=== PATIENT | female | born 1985 | race Caucasian/White ===

== ENCOUNTER 2018-03-10 16:48 | Emergency (ER) | payer OTHER, SELFPAY ==
[2018-03-10 16:50] VITALS: BP 162/87; PULSE 110; RESP 16; TEMP 36.6; O2SAT 98; BMI 31.8
--- NOTE | 2018-03-10 18:07 | US_ITS ---
STUDY: FIRST TRIMESTER OBSTETRICAL ULTRASOUND REASON FOR EXAM: Female, 32 years old. Bleeding. LMP: February 01, 2018. TECHNIQUE: Transvaginal. TECHNICAL QUALITY: Adequate. PRIOR ULTRASOUND: None. FINDINGS: There is no demonstrated intrauterine gestational sac. There is no demonstrated yolk sac. The placenta is non-visualized. There is no demonstrated embryo ( pole). The estimated gestation age (EGA) by LMP is 5 weeks, 2 days. The estimated date of delivery (LITZY) by LMP is November 08, 2018. The uterus measures 7.2 x 4.2 x 3.1 cm. There is no demonstrated uterine fibroid. The cervix is closed. The right ovary measures 2.8 x 2.2 x 2.0 cm. There is no right ovarian cyst. There is no visualized right adnexal mass or complex lesion. The left ovary measures 2.7 x 2.0 x 1.9 cm. There is 1.7 cm cyst. There is no visualized left adnexal mass or complex lesion. There is mild fluid in the cul de sac. US/Transvaginal w/Preg US IMPRESSION: There is no intra or extra uterine gestation seen. Left adnexal cyst. Mild free fluid. Electronically Signed: Shayan Hill MD at 19:38 EDT , Service support ,
[2018-03-10 18:30] LABS: Absolute Lymphocyte Count 1.18 X10^3/ul (0.83-4.51); Absolute Neutrophil Count 6.6 X10^3/uL (2.0-7.7); Basophil# 0.01 X10^3/uL; Basophil% 0.1 % (0-1); Eosinophil# 0.04 X10^3/uL; Eosinophils% 0.5 % (0-5); Hemoglobin 14.2 g/dl (12.0-15.0); Lymphocyte # 1.18 X10^3/ul (4.0); Lymphocyte % 13.9 % (19-41); Mean Corp Hgb Conc 34.6 g/gl (32-36); Mean Corpuscular Hgb 30.4 pg (27.0-32.0); Mean Corpuscular Volume 87.8 fL (81-99); Mean Platelet Vol. 10.2 fl (6.2-12.0); Monocyte# 0.68 X10^3/uL; Neutrophil # 6.55 X10^3/uL (2.7-7.7); Neutrophil % 77.5 % (47-70); Platelet Count 286 K/mm3 (150-450); RBC Distribution Width CV 12.8 % (11.6-14.6); RBC Distribution Width SD 40.9 fl (35.1-43.9); Red Blood Count 4.67 M/mm3 (4.2-5.4); White Blood Count 8.5 K/mm3 (4.4-11.0)
[2018-03-10 18:32] LABS: POSITIVE COUNT NO; POSITIVE DIFFERENTIAL NO; POSITIVE MORPHOLOGY NO
[2018-03-10 18:41] LABS: hCG Titer Quant., Serum 119 mIU/mL (<9 non-preg)
--- NOTE | 2018-03-10 20:02 | ED.VISSUMM ---
- ER Visit Summary Date of Service: 03/10/18 Chief Complaint: [Vaginal bleeding] History of Present Illness: The patient is a 32 F [presents to the emergency department with complaint of vaginal bleeding that started yesterday. Patient states that she took a positive test last week. Patient's last menstrual period was February 01. Last evening she started having increased spotting and lower abdominal pain and cramping. Patient denies urinary symptoms. Patient is . Patient denies feeling lightheaded or dizzy.] Physical Examination: HEENT-PERRLA, EOMI. Cranial nerves II through XII grossly intact. TMs clear. Mucous membranes moist. No adenopathy. Cardiovascular-regular rate and rhythm without murmur or ectopy Lungs-clear to auscultation, chest wall stable without crepitus or subcu emphysema Abdomen-normoactive bowel sounds, soft, nontender, no rebound or rigidity, no peritoneal signs. Extremities-intact ?4, normal range of motion, normal pulses, atraumatic] Test Results: [CBC with differential showed a white count of 8.5, hemoglobin 14, hematocrit 41, platelets 286. Blood type was O+. HCG was 119. Pelvic ultrasound obtained showed a left ovarian cyst however there was no evidence of intra-or extrauterine gestation there was small amount of fluid in the cul-de-sac.] Emergency Department Course and Treatment: [Case was discussed with Dr. Lloyd who asked that patient have a repeat quant in 48 hours.] Treatment Plan: [Repeat quant in 48 hours and follow-up with Dr. Lloyd] Disposition: [Discharged home in stable condition] Impression: [Threatened First trimester bleeding Please cc Dr. Fitz Hernandez with dictation] This note was generated with [employer] software. It may contain incorrect words, spelling, and punctuation that were not noted in review of the chart prior to signing ED Disposition - Plan for ED Patient: Chief Complaint: Vag Bld, Preg Referrals: Mitch Colindres MD [Primary Care Provider] -
[2018-03-10 20:04] VITALS: PULSE 76; RESP 18
--- NOTE | 2018-03-10 20:05 | ED.DEP ---
ED Disposition - Plan for ED Patient: Chief Complaint: Vag Bld, Preg Instructions: ED Miscarriage Poss Referrals: Mitch Colindres MD [Primary Care Provider] - Magaly Lloyd MD [STAFF PHYSICIAN] - 3-5 Days
== END 2018-03-10 20:09 | disposition home or self-care (01) ==
LOC: ED 18:51
PROVIDERS: Emergency Provider Emergency Medicine; Family Provider Family Medicine; PCP Family Medicine
DX: O20.0 Threatened abortion (principal); O34.81 Maternal care for other abnormalities of pelvic organs, first trimester; N83.202 Unspecified ovarian cyst, left side; Z3A.00 Weeks of gestation of pregnancy not specified
CPT/HCPCS: 76817; 84702; 85025; 86900; 99283; A4216

== ENCOUNTER → 2018-03-12 09:42 | Outpatient (CLI) | payer OTHER, SELFPAY ==
[2018-03-12 11:13] LABS: hCG Titer Quant., Serum 167 mIU/mL (<9 non-preg)
== END ==
PROVIDERS: Obstetrics & Gynecology; Family Provider Family Medicine; PCP Family Medicine; Referring Provider Emergency Medicine; Visit Provider Emergency Medicine
DX: O20.0 Threatened abortion (principal); Z3A.00 Weeks of gestation of pregnancy not specified
CPT/HCPCS: 36415; 84702

== ENCOUNTER → 2018-03-14 10:55 | Outpatient (CLI) | payer OTHER, SELFPAY ==
[2018-03-14 11:47] LABS: hCG Titer Quant., Serum 206 mIU/mL (<9 non-preg)
== END ==
PROVIDERS: Family Provider Family Medicine; PCP Family Medicine; Visit Provider Obstetrics & Gynecology
DX: O20.0 Threatened abortion (principal); Z3A.00 Weeks of gestation of pregnancy not specified
CPT/HCPCS: 36415; 84702

== ENCOUNTER → 2018-03-16 08:37 | Outpatient (CLI) | payer OTHER, SELFPAY ==
[2018-03-16 10:13] LABS: Progesterone Level 2.32 ng/mL (See Comment)
[2018-03-16 10:26] LABS: hCG Titer Quant., Serum 248 mIU/mL (<9 non-preg)
== END ==
LOC: LAB 08:40
PROVIDERS: Family Provider Family Medicine; PCP Family Medicine; Referring Provider Obstetrics & Gynecology; Visit Provider Obstetrics & Gynecology
DX: R79.9 Abnormal finding of blood chemistry, unspecified (principal)
CPT/HCPCS: 36415; 84144; 84702

== ENCOUNTER → 2018-03-19 10:47 | Outpatient (CLI) | payer OTHER, SELFPAY ==
[2018-03-19 12:31] LABS: hCG Titer Quant., Serum 236 mIU/mL (<9 non-preg)
== END ==
PROVIDERS: Family Provider Family Medicine; PCP Family Medicine; Referring Provider Obstetrics & Gynecology; Visit Provider Obstetrics & Gynecology
DX: O20.0 Threatened abortion (principal); Z3A.00 Weeks of gestation of pregnancy not specified
CPT/HCPCS: 36415; 84702

== ENCOUNTER → 2018-03-26 10:56 | Outpatient (CLI) | payer OTHER, SELFPAY ==
[2018-03-26 11:53] LABS: hCG Titer Quant., Serum 252 mIU/mL (<9 non-preg)
[2018-03-30 10:37] LABS: C1 Esterase Inhibitor, Quant 29 mg/dL (21-39)
== END ==
LOC: LAB 10:58
PROVIDERS: Family Provider Family Medicine; PCP Family Medicine; Referring Provider Obstetrics & Gynecology; Visit Provider Obstetrics & Gynecology
DX: O03.9 Complete or unspecified spontaneous abortion without complication (principal)
CPT/HCPCS: 36415; 84702; 86160

== ENCOUNTER → 2018-03-28 10:23 | Outpatient (CLI) | payer OTHER, SELFPAY ==
[2018-03-28 11:18] LABS: hCG Titer Quant., Serum 215 mIU/mL (<9 non-preg)
== END ==
PROVIDERS: Family Provider Family Medicine; PCP Family Medicine; Visit Provider Obstetrics & Gynecology
DX: O20.0 Threatened abortion (principal); Z3A.00 Weeks of gestation of pregnancy not specified
CPT/HCPCS: 36415; 84702

== ENCOUNTER → 2018-04-05 10:25 | Outpatient (CLI) | payer OTHER, SELFPAY ==
[2018-04-05 11:52] LABS: hCG Titer Quant., Serum 16 mIU/mL (<9 non-preg)
== END ==
PROVIDERS: Family Provider Family Medicine; PCP Family Medicine; Referring Provider Obstetrics & Gynecology; Visit Provider Obstetrics & Gynecology
DX: O03.9 Complete or unspecified spontaneous abortion without complication (principal)
CPT/HCPCS: 36415; 84702

== ENCOUNTER 2020-01-16 23:55 | Inpatient (IN) | payer OTHER, SELFPAY ==
[2020-01-16 23:56] VITALS: BP 120/79; PULSE 101; RESP 16; TEMP 37.1; O2SAT 99; BMI 31.2
[2020-01-17] VITALS (14 sets, daily range): BP systolic 93–124; BP diastolic 55–81; PULSE 70–97; RESP 14–18; TEMP 36.4–37.2; O2SAT 96–100; BMI 30.9
--- NOTE | 2020-01-17 00:05 | CT_ITS ---
We are attempting to reach an attending provider to discuss findings. An addendum with communication details will be sent when the communication is complete. STUDY: CT ABDOMEN AND PELVIS WITHOUT CONTRAST REASON FOR EXAM: Female, 34 years old. Generalized abdominal pain. RADIATION DOSAGE (If Supplied By Facility): CTDIvol = ( 13.14 ) mGy, DLP = ( 643.25 ) mGycm TECHNIQUE: Transaxial images were obtained from the dome of the diaphragm to the symphysis pubis without oral contrast, and without intravenous contrast. Sagittal and coronal images were reconstructed. Individualized dose optimization techniques were used for this CT. COMPARISON: None. FINDINGS: The visualized lung bases are unremarkable. The visualized portions of the heart are within normal limits. Normal liver. Normal gallbladder and extrahepatic biliary system. Normal spleen. Normal pancreas. Normal bilateral adrenal glands. Normal right kidney. 1 mm nonobstructing inferior pole left renal calculus. Normal visualized stomach. Normal small intestine. Stool present throughout the colon which may represent constipation. 2.0 cm coarse calcification right lower quadrant possibly associated with a dilated appendix coronal image 52 through 54. No periappendiceal inflammatory changes. A calcified right ovarian mass is a another consideration. Normal abdominal aorta. Normal inferior vena cava. Normal retroperitoneum. No intra-abdominal free air. Normal urinary bladder. Uterus grossly normal. As above 2 cm coarse calcification anterior to the right ovary axial images 125 through 131. No left adnexal mass identified. Normal abdominal wall. Normal osseous structures. CT/Abdomen/Pelvis without Cont IMPRESSION: No evidence of bowel obstruction. Stool is present throughout the colon which may represent constipation. 2 cm coarse calcification right lower quadrant. Considerations are an appendicolith associated with a dilated appendix versus a right ovarian neoplasm. Pelvic ultrasound may prove useful. Tiny nonobstructing left renal calculus. Electronically Signed: Cali Santiago MD at 1:49 EDT , Service support ,
--- NOTE | 2020-01-17 00:06 | ED.VIS.GEN ---
History of Present Illness Chief Complaint: Abd Pain Informant: Patient Narrative: Stated all day today she has had abdominal discomfort. She describes a sensation of fullness or bloating. She is never had this before. She is also feeling some soreness in her low back. No urinary symptoms. Denies any other problems. No home treatment. No nausea or vomiting or diarrhea. Does not think she is . Current severity is mild. Worsened by nothing. Relieved by nothing. Past Medical History - Allergies and Home Meds Allergies/Adverse Reactions: Allergies Sulfa (Sulfonamide Antibiotics) Allergy (Verified 01/16/20 23:56) Hives Primary Care Physician: Mitch Colindres MD [NON-STAFF] - Prior records reviewed: Yes Past Medical History: None Surgical History: - - Reviewed Smoking Status: Never smoker Alcohol: None Drugs: None Review of Systems General: Denies: Chills, Fever, Sweats Eyes: Denies: Visual changes - bilaterally, Diplopia ENT: Denies: Rhinorrhea, Sore throat Cardiovascular: Denies: Chest pain, Palpitations Respiratory: Denies: Dyspnea, Cough, Dyspnea on exertion Gastrointestinal: Reports: Abdominal pain. Denies: Nausea, Vomiting, Diarrhea, Melena, Hematochezia Genitourinary: Denies: Dysuria, Hematuria, Frequency Musculoskeletal: Reports: Back pain. Denies: Extremity Pain Skin: Denies: Rash, Wounds Neurological: Denies: Headache, Weakness, Numbness Physical Exam Vital Signs/Narrative: Vital Signs Temp Pulse Resp BP Pulse Ox 01/16/20 23:56 98.7 F 101 H 16 120/79 99 General: Well nourished, Well developed, No Acute Distress Head: Normocephalic, Atraumatic Eyes: Perrl, EOMI ENT: Moist mucous membranes, No rhinorrhea Neck: Supple, Nontender Cardiovascular: Regular rate, Regular rhythm, No murmurs Respiratory: No distress, CTA bilaterally, Chest nontender Abdomen: Soft, Nondistended, Normal bowel sounds, Tender - Tender left lower quadrant. Negative for: Guarding, Rebound tenderness, Hyperactive bowel sounds, Pulsatile mass, Ventral hernia, Inguinal hernia Back: Nontender, Normal Inspection Extremities: Nontender, No edema Skin: Normal color, No rash Neurological: Alert, Oriented x3, Cranial nerves II-XII grossly intact, Normal Strength, Normal Sensation Psychological: Normal affect, Normal Mood Diagnostic/Tx/Re-eval - Medical Decision Making Patient does not want thing for pain. Lab work and CT abdomen pelvis obtained. Lab work shows a mild leukocytosis with left shift. Liver function tests lipase urinalysis and negative. CT abdomen pelvis shows right lower quadrant calcified region with possible ovarian versus appendiceal pathology. Discussed with Dr. Scanlon who came in to evaluate the patient. At this time he feels this may be more ovarian related. Nonetheless Zosyn was given as a precaution for possible appendicitis early in the patient's stay. Ultrasound was done transvaginal shows a complex right-sided ovarian cyst with soft tissue component. This was discussed with MEDICAL REGISTRAR who will evaluate the patient in the emergency department. Patient will be admitted for further evaluation and treatment ED Disposition - Plan for ED Patient: Disposition: [facility] Diagnosis: Ovarian cyst
[2020-01-17 00:21] LABS: Mucous, Urine 0 SEEN /hpf (<or=2+); Red Blood Cells-Urine 0 SEEN /hpf (0-5)
[2020-01-17 00:24] LABS: Absolute Lymphocyte Count 1.01 X10^3/uL (0.83-4.51); Absolute Neutrophil Count 12.3 X10^3/uL (2.0-7.7); Basophil# 0.03 X10^3/uL; Basophil% 0.2 % (0-1); Eosinophil# 0.07 X10^3/uL; Eosinophils% 0.5 % (0-5); Hematocrit 42.5 % (37-47); Hemoglobin 14.4 g/dL (12.0-15.0); Lymphocyte # 1.01 X10^3/ul (4.0); Mean Corp Hgb Conc 33.9 g/dL (32-36); Mean Corpuscular Hgb 30.3 pg (27.0-32.0); Mean Corpuscular Volume 89.5 fL (81-99); Monocyte# 1.03 X10^3/uL; Monocyte% 7.1 % (0-10); NRBC Flagged by Analyzer 0 % (0-5); Neutrophil # 12.29 X10^3/uL (2.7-7.7); Neutrophil % 84.9 % (47-70); Platelet Count 291 K/mm3 (150-450); RBC Distribution Width CV 12.4 % (11.6-14.6); RBC Distribution Width SD 40.8 fl (35.1-43.9); Red Blood Count 4.75 M/mm3 (4.2-5.4); White Blood Count 14.5 K/mm3 (4.4-11.0)
[2020-01-17 00:26] LABS: Color, Urine Yellow (Yellow); Glucose, Dipstick Normal (Normal); Ketone-Dipstick Negative (Negative); Leukocyte Esterase-Dipstick 25 /ul (Negative); Nitrite-Dipstick Negative (Negative); Occult Blood-Urine Negative /ul (Negative); Protein-Dipstick Negative (Negative); Specific Gravity, Urine 1.025 (1.002-1.030); Urine Bilirubin Dipstick Negative (Negative); Urine Clarity Clear (Clear); Urine Urobilinogen Normal (Normal)
[2020-01-17 00:34] LABS: Bacteria RARE /hpf (None Seen); Squamous Epithelial Cells - UA 0-5 SEEN /hpf (5-10); White Blood Cells 0-5 SEEN /hpf (0-5)
[2020-01-17 00:36] LABS: Internal QC Validated? YES +Cl - CLEAR BKGD; Pregnancy, Serum, hCG Quali. NEGATIVE Negative
[2020-01-17 00:44] LABS: AST(SGOT) 9 U/L (15-37); Alanine Aminotransfer ALT/SGPT 24 U/L (13-56); Albumin, Serum 3.9 g/dL (3.2-5.0); Alkaline Phosphatase 94 U/L (45-117); Anion Gap 6 (5-15); BUN 14 mg/dL (7-18); BUN/Creat Ratio 14.7 RATIO (10-20); Calcium,Total 9.2 mg/dL (8.5-10.1); Chloride 108 mmol/L (98-107); Creatinine, Serum 0.95 mg/dL (0.55-1.02); EST Glomerular Filtration Rate 71 mL/min (>60); Est Glom Filt Rate - Afr Amer 85 mL/min (>60); Estimated Creatinine Clearance 74.38 ml/min; Glucose 112 mg/dL (74-106); Lipase 93 U/L (73-393); Potassium 3.8 mmol/L (3.5-5.1); Protein, Total 7.9 g/dL (6.4-8.2); Sodium Level 140 mmol/L (136-145)
--- NOTE | 2020-01-17 02:55 | US_ITS ---
STUDY: ULTRASOUND TRANSVAGINAL CLINICAL: Female, 34 years old. Right-sided abdominal pain for one day. Large coarse calcification right lower quadrant on CT scan. LMP 01/09/2020. TECHNIQUE: Transvaginal COMPARISON: CT abdomen and pelvis January 17, 2020. Pelvic ultrasound March 10, 2018. FINDINGS: The uterus is anteverted and measures 7.5 x 4.7 x 3.2 cm. Endometrium measures 7 mm and is heterogeneous. Cervix is within normal limits. No IUD. Right ovary is enlarged measuring 6.6 x 5.4 x 2.5 cm and contains a simple cyst measuring 2.1 x 2.0 x 1.6 cm. Complex adnexal cyst measuring 4.2 x 3.3 x 1.9 cm which appears to contain a peripheral soft tissue component. Normal vascular flow. The coarse calcification identified on CT in the right lower quadrant is not visualized. The calcification is probably not associated with the right ovary. Left ovary measures 3.1 x 2.6 x 2.1 cm and is normal. Normal vascular flow. Mild to moderate free fluid in the cul-de-sac which in retrospect is present on the CT scan.. Urinary bladder volume is 283 mL. US/Transvaginal Non- IMPRESSION: No evidence of ovarian torsion as both ovaries demonstrate normal vascular flow. Enlarged right ovary containing a simple cyst and complex cyst. The complex cyst could represent a hemorrhagic cyst or an ovarian neoplasm. Recommend follow-up ultrasound after 2-3 menstrual cycles or sooner as clinically warranted. Consider [employer] consult. Free fluid in the cul-de-sac which is a nonspecific finding. Considerations include a ruptured ovarian cyst and infection. Correlate with test. Electronically Signed: Cali Santiago MD at 5:26 EDT , Service support ,
--- NOTE | 2020-01-17 05:42 | PCM.CONS.GEN ---
Problem List (1) Abdominal pain Status: Acute Qualifiers: Abdominal location: right lower quadrant Qualified Code(s): R10.31 - Right lower quadrant pain Reason for Consult Date of Consultation: 01/17/20 History of Present Illness: The patient is a 34 year old F who presents to the emergency room late last night with onset of generalized epigastric abdominal pain which then localized to the right lower quadrant. I been asked by Dr. Cancino to help provide general surgical evaluation and a written copy of my surgical consult recommendations will be present in the charting. Patient noted epigastric mid abdominal generalized pain which localized to the right lower quadrant last evening. She tried to sleep was awakened. She took her temperature a low-grade fever of 99.3. She presented to the emergency room. Zenon demonstrated a white blood cell count of 14.5 with a hemoglobin 14.4 medical at 42.5 platelet count 291,000 with 84% neutrophils and 7% lymphocytes. BUN is 14 creatinine 0.95. Total bilirubin 0.4. AST 9. ALT 24. Alkaline phosphatase 94. Lipase 93. Serum test negative. Urinalysis was not remarkable. A noncontrasted CT scan was obtained. This was interpreted by and I purposely tracked him down and had a verbal discussion with him. He feels that there is a 2 cm calcified mass in the right lower quadrant which he feels is consistent with an appendicolith with then a large mucocele from the obstruction. He felt that the calcification would be atypical for an ovarian neoplasm more consistent with a appendicolith. I personally reviewed the images however in the calcified lesion is reasonably close to the cecum but without additional stranding of the fibrofatty tissue. There is then a large fluid-filled structure in the right pelvis seemingly contiguous this with this calcification as well. This item is teardrop and does not to me have the appearance of a ovary distended mucocele. It has the appearance to me of a tubo ovarian pathology. After discussion it was recommended to proceed with a transvaginal ultrasound. This study demonstrates that the right ovary is enlarged measuring 6.6 x 5.4 x 2.5 cm contains a simple cyst measuring 2.1 x 2 x 1.6 cm and a complex adnexal cyst measuring 4.2 x 3.3 x 1.9 cm which appears to Hua peripheral soft tissue component. The coarse calcification seen on CT is not identified and is felt probably not to be associated with the right ovary. There is felt to be a mild to moderate amount of free fluid in the cul-de-sac which retrospectively was seen on CT as well but not commented. There is no evidence of ovarian torsion. Now the interpretation is enlarged right ovarian a with simple cyst complex cyst possibly hemorrhagic cyst or ovarian neoplasm. Free fluid possible ruptured ovarian cyst or infection. Past Medical History Medical History: Medical History (Last Reviewed 03/23/18 @ 08:27 by Albina Grigsby) Thyroid disorder E07.9 Allergies Sulfa (Sulfonamide Antibiotics) Allergy (Verified 01/16/20 23:56) Hives Home Medications: Ambulatory Orders Medication Instructions Recorded levothyroxine 25 mcg tablet 25 mcg PO QDAY #30 tab 05/13/17 vitamin#30 30 mg iron-10 cap PO cap 03/16/18 mg iron-folic acid 1 mg-omg3 capsule Surgical History: Surgical History (Last Reviewed 03/23/18 @ 08:27 by Albina Grigsby) back cystectomy Surgical History: - - Reviewed Smoking Status: Never smoker Alcohol: None Drugs: None Review of Systems Constitutional: Reports: Fever. Denies: Chills Cardiovascular: Denies: Chest Pain Respiratory: Denies: Cough Gastrointestinal: Reports: Abdominal Pain, - - Last bowel movement yesterday unremarkable without constipation or diarrhea. Denies: Constipation, Diarrhea Patient Problems: Active and Suspected Problems (Last Reviewed 03/23/18 @ 08:27 by Albina Grigsby) Abdominal pain (Acute) - Physical Exam Vitals/I&O's: Vital Signs Temp Pulse Resp BP Pulse Ox 98.7 F 72 16 124/68 H 98 01/16/20 23:56 01/17/20 05:23 01/17/20 05:23 01/17/20 05:23 01/17/20 05:23 Oxygen Delivery Method Room Air Weight: 187 lb 13.341 oz Body Mass Index (BMI) 31.2 Intake and Output for Last 24 Hours 01/15/20 01/16/20 01/17/20 23:59 23:59 23:59 Intake Total 100 / 100 Balance 100 / 100 General: Alert, Oriented x3, Cooperative, No apparent distress Oral: Moist Mucosa Lungs: Clear to auscultation, Normal air movement Cardiovascular: Regular rate, Regular Rhythm Abdomen: Soft, Bowel Sounds Not Present, - - Focally tender to light palpation right lower quadrant with guarding. No mass appreciated Extremities: No Calf Tenderness Psych/Mental Status: Normal Affect Laboratory Results 01/17/20 00:15: WBC 14.5 H, RBC 4.75, Hgb 14.4, Hct 42.5, MCV 89.5, MCH 30.3, MCHC 33.9, RDW Std Deviation 40.8, RDW Coeff of Francis 12.4, Plt Count 291, MPV 10.0, Immature Gran % (Auto) 0.300, Neut % (Auto) 84.9 H, Lymph % (Auto) 7.0 L, [place] % (Auto) 7.1, Eos % (Auto) 0.5, Baso % (Auto) 0.2, Absolute Neuts (auto) 12.3 H, Absolute Lymphs (auto) 1.01, Nucleated RBC % 0 01/17/20 00:15: Sodium 140, Potassium 3.8, Chloride 108 H, Carbon Dioxide 26.0, Anion Gap 6, BUN 14, Creatinine 0.95, Estim Creat Clear Calc 74.38, Est GFR (MDRD) Af Amer 85, Est GFR (MDRD) Non-Af 71, BUN/Creatinine Ratio 14.7, Glucose 112 H, Calcium 9.2, Total Bilirubin 0.40, AST 9 L, ALT 24, Alkaline Phosphatase 94, Total Protein 7.9, Albumin 3.9, Globulin 4.0, Albumin/Globulin Ratio 1.0, Lipase 93 01/17/20 00:15: Serum , Qual NEGATIVE 01/17/20 00:15: Urine Color Yellow, Urine Clarity Clear, Urine pH 6.0, Ur Specific [place] 1.025, Urine Protein Negative, Urine Glucose (UA) Normal, Urine Ketones Negative, Urine Occult Blood Negative, Urine Nitrite Negative, Urine Bilirubin Negative, Urine Urobilinogen Normal, Ur Leukocyte Esterase 25 H, Urine RBC 0 SEEN, Urine WBC 0-5 SEEN, Ur Squamous Epith Cells 0-5 SEEN, Urine Bacteria RARE, Urine Mucus 0 SEEN Assessment/Plan All Active Problems (Last Reviewed 03/23/18 @ 08:27 by Albina Grigsby) Abdominal pain (Acute) Abnormal TSH (Acute) 34-year-old female who presents with acute onset of right lower quadrant pain. Clinically with low-grade fever of 99 and slightly elevated white count at 14,000 and focal pain and tenderness at McBurney's point one would otherwise think that this is consistent with appendicitis. The large 2 cm calcified mass would be very large for an appendicolith. Otherwise an appendix is not clearly identified. The large fluid filled structure in the pelvis now has been excluded as a mucocele and is consistent with tubo-ovarian pathology. I have personally contacted who is on-call for Dr. Lloyd. She is agreed to see the patient and provide gynecologic input.. The patient will be held in the emergency room and held n.p.o. while awaiting additional surgical consideration. She has received a dose of IV Zosyn. I appreciate the opportunity of assisting with her surgical care. I will be available for ongoing general surgical considerations as indicated. My involvement included a phone call from at 2:30 AM with subsequently 45 minutes of my involvement reviewing CT images and tracking the interpreting radiologist Dr. Santiago and then recommending the transvaginal ultrasound. There was an additional intervention at 5:15 in the morning with patient interview and examination and personal review of the transvaginal ultrasound and personal contacting of Dr. Burnham. Additional time 45 minutes. Keon Scanlon M.D., F.A.C.S.
--- NOTE | 2020-01-17 06:39 | CON.PCM_ITS ---
Reason for Consult History of Present Illness: The patient is a 34 year old F [] Past Medical History Medical History: Medical History (Last Reviewed 03/23/18 @ 08:27 by Albina Grigsby) Thyroid disorder E07.9 Allergies Sulfa (Sulfonamide Antibiotics) Allergy (Verified 01/16/20 23:56) Hives Home Medications: Ambulatory Orders Medication Instructions Recorded levothyroxine 25 mcg tablet 25 mcg PO QDAY #30 tab 05/13/17 vitamin#30 30 mg iron-10 cap PO cap 03/16/18 mg iron-folic acid 1 mg-omg3 capsule Surgical History: Surgical History (Last Reviewed 03/23/18 @ 08:27 by Albina Grigsby) back cystectomy Surgical History: - - Reviewed Smoking Status: Never smoker Alcohol: None Drugs: None Patient Problems: Active and Suspected Problems (Last Reviewed 03/23/18 @ 08:27 by Albina Grigsby) Abdominal pain (Acute) Ovarian cyst (Acute) - Physical Exam Vitals/I&O's: Vital Signs Temp Pulse Resp BP Pulse Ox 98.7 F 91 16 116/81 H 98 01/16/20 23:56 01/17/20 06:14 01/17/20 06:14 01/17/20 06:14 01/17/20 06:14 Oxygen Delivery Method Room Air Weight: 187 lb 13.341 oz Body Mass Index (BMI) 31.2 Intake and Output for Last 24 Hours 01/15/20 01/16/20 01/17/20 23:59 23:59 23:59 Intake Total 100 / 100 Balance 100 / 100 Laboratory Results 01/17/20 00:15: WBC 14.5 H, RBC 4.75, Hgb 14.4, Hct 42.5, MCV 89.5, MCH 30.3, MCHC 33.9, RDW Std Deviation 40.8, RDW Coeff of Francis 12.4, Plt Count 291, MPV 10.0, Immature Gran % (Auto) 0.300, Neut % (Auto) 84.9 H, Lymph % (Auto) 7.0 L, [place] % (Auto) 7.1, Eos % (Auto) 0.5, Baso % (Auto) 0.2, Absolute Neuts (auto) 12.3 H, Absolute Lymphs (auto) 1.01, Nucleated RBC % 0 01/17/20 00:15: Sodium 140, Potassium 3.8, Chloride 108 H, Carbon Dioxide 26.0, Anion Gap 6, BUN 14, Creatinine 0.95, Estim Creat Clear Calc 74.38, Est GFR (MDRD) Af Amer 85, Est GFR (MDRD) Non-Af 71, BUN/Creatinine Ratio 14.7, Glucose 112 H, Calcium 9.2, Total Bilirubin 0.40, AST 9 L, ALT 24, Alkaline Phosphatase 94, Total Protein 7.9, Albumin 3.9, Globulin 4.0, Albumin/Globulin Ratio 1.0, Lipase 93 01/17/20 00:15: Serum , Qual NEGATIVE 01/17/20 00:15: Urine Color Yellow, Urine Clarity Clear, Urine pH 6.0, Ur Specific [place] 1.025, Urine Protein Negative, Urine Glucose (UA) Normal, Urine Ketones Negative, Urine Occult Blood Negative, Urine Nitrite Negative, Urine Bilirubin Negative, Urine Urobilinogen Normal, Ur Leukocyte Esterase 25 H, Urine RBC 0 SEEN, Urine WBC 0-5 SEEN, Ur Squamous Epith Cells 0-5 SEEN, Urine Bacteria RARE, Urine Mucus 0 SEEN Assessment/Plan All Active Problems (Last Reviewed 03/23/18 @ 08:27 by Albina Grigsby) Abdominal pain (Acute) Ovarian cyst (Acute) Abnormal TSH (Acute)
--- NOTE | 2020-01-17 06:53 | PCM.HP.BLA ---
Problem List (1) Abdominal pain Status: Acute Qualifiers: Abdominal location: right lower quadrant Qualified Code(s): R10.31 - Right lower quadrant pain (2) Ovarian cyst Status: Acute History and Physical Date of Admission: 01/17/20 Patient is a 34yo presenting to the ER with a one day history of abdominal pain. Pain initially started at the umbilicus and radiated into her back, but has since migrated to her suprapubic region and right lower quadrant. She reports abdominal and back discomfort all day yesterday. She reports that her pain gradually worsened throughout the day and was improved by applying pressure to this area. She reports that she was awoken in the middle of the night with severe pain and cold sweats (T99 at that time). Denies nausea, vomiting, diarrhea. Has not had anything like this in the past. Pain has intermittently waxed and waned throughout the night and was the worst right before she came to the ER. Now slightly better than when she arrived. Multi Select Codes - Visit Charges Office Visit/Consults: 16877 OV L4 Est - established patient seen in ER and taken to OR same day Review of Systems General: Denies: Chills, Fever, Sweats Cardiovascular: Denies: Chest pain Respiratory: Denies: Dyspnea, Cough Gastrointestinal: Reports: Abdominal pain. Denies: Nausea, Vomiting, Diarrhea Genitourinary: Reports: - - denies vaginal bleeding and discharge. Denies: Dysuria Neurological: Denies: Headache, Weakness Physical Exam Vital Signs Temp Pulse Resp BP Pulse Ox 01/17/20 06:45 98.5 F 91 16 116/81 H 98 01/17/20 06:14 91 16 116/81 H 98 01/17/20 05:23 72 16 124/68 H 98 General: Well nourished, Well developed Head: Normocephalic, Atraumatic Eyes: EOMI Neck: Supple Cardiovascular: Regular rate, Regular rhythm, No murmurs Respiratory: No distress, Clear to auscultation bilaterally Abdomen: Soft, No masses - none palpable, Tender - Right lower quadrant and suprapubic region, Guarding - voluntary, - - winces when changing positions in bed Extremities: Nontender, No edema Skin: Normal color, No rash Neurological: Alert, Oriented, Cranial nerves II-XII grossly intact Psychological: Normal affect Assessment/Plan All Active Problems (Last Reviewed 03/23/18 @ 08:27 by Albina Grigsby) Abdominal pain (Acute) Ovarian cyst (Acute) Abnormal TSH (Acute) 34yo presenting with right lower quadrant abdominal pain 1. Ovarian cyst, suspected ovarian torsion - Presented to ER with right lower quadrant abdominal pain - CT showed calcified area in right lower abdomen and cystic region in the right adnexa - US showed right ovary to be enlarged at
--- NOTE | 2020-01-17 07:18 | HP.PCM_ITS ---
Problem List (1) Abdominal pain Status: Acute Qualifiers: Abdominal location: right lower quadrant Qualified Code(s): R10.31 - Right lower quadrant pain (2) Ovarian cyst Status: Acute History of Present Illness Date of Admission: 01/17/20 Chief Complaint: Abdominal pain Patient is a 34yo presenting to the ER with a one day history of abdominal pain. Pain initially started at the umbilicus and radiated into her back, but has since migrated to her suprapubic region and right lower quadrant. She reports abdominal and back discomfort all day yesterday. She reports that her pain gradually worsened throughout the day and was improved by applying pressure to this area. She reports that she was awoken in the middle of the night with severe pain and cold sweats (T99 at that time). Denies nausea, vomiting, diarrhea. Has not had anything like this in the past. Pain has intermittently waxed and waned throughout the night and was the worst right before she came to the ER. Now slightly better than when she arrived. Past Medical History Medical History: Medical History (Last Reviewed 03/23/18 @ 08:27 by Albina Grigsby) Thyroid disorder E07.9 Allergies Sulfa (Sulfonamide Antibiotics) Allergy (Verified 01/16/20 23:56) Hives Home Medications: Ambulatory Orders Medication Instructions Recorded levothyroxine 25 mcg tablet 25 mcg PO QDAY #30 tab 05/13/17 vitamin#30 30 mg iron-10 cap PO cap 03/16/18 mg iron-folic acid 1 mg-omg3 capsule Surgical History: Surgical History (Last Reviewed 03/23/18 @ 08:27 by Albina Grigsby) back cystectomy Surgical History: - - Reviewed - no prior surgeries [employer] History: spontaneous Smoking Status: Never smoker Alcohol: None Drugs: None Review of Systems Constitutional: Reports: Chills, Night Sweats. Denies: Fever Cardiovascular: Denies: Chest Pain, Palpitations Respiratory: Denies: Cough, Shortness of Breath Gastrointestinal: Reports: Abdominal Pain. Denies: Diarrhea, Nausea, Vomiting Genitourinary: Denies: Dysuria Gynecological: Denies: Vaginal bleeding, Vaginal discharge, Vaginal itching Skin: Denies: Rash, Wounds Neurological: Denies: Numbness, Tingling Psychiatric: Denies: Anxiety, Depression VTE Information - Inpt Only VTE Present on Admission: No Patient Problems: Active and Suspected Problems (Last Reviewed 03/23/18 @ 08:27 by Albina Grigsby) Abdominal pain (Acute) Ovarian cyst (Acute) Objective: Laboratory Results - last 24 hr 01/17/20 01/17/20 01/17/20 00:15 00:15 00:15 WBC 14.5 H RBC 4.75 Hgb 14.4 Hct 42.5 MCV 89.5 MCH 30.3 MCHC 33.9 RDW Std Deviation 40.8 RDW Coeff of Francis 12.4 Plt Count 291 MPV 10.0 Immature Gran % (Auto) 0.300 Neut % (Auto) 84.9 H Lymph % (Auto) 7.0 L Shelby % (Auto) 7.1 Eos % (Auto) 0.5 Baso % (Auto) 0.2 Absolute Neuts (auto) 12.3 H Absolute Lymphs (auto) 1.01 Nucleated RBC % 0 Sodium 140 Potassium 3.8 Chloride 108 H Carbon Dioxide 26.0 Anion Gap 6 BUN 14 Creatinine 0.95 Estim Creat Clear Calc 74.38 Est GFR (MDRD) Af Amer 85 Est GFR (MDRD) Non-Af 71 BUN/Creatinine Ratio 14.7 Glucose 112 H Calcium 9.2 Total Bilirubin 0.40 AST 9 L ALT 24 Alkaline Phosphatase 94 Total Protein 7.9 Albumin 3.9 Globulin 4.0 Albumin/Globulin Ratio 1.0 Lipase 93 Serum , Qual NEGATIVE Urine Color Urine Clarity Urine pH Ur Specific [place] Urine Protein Urine Glucose (UA) Urine Ketones Urine Occult Blood Urine Nitrite Urine Bilirubin Urine Urobilinogen Ur Leukocyte Esterase Urine RBC Urine WBC Ur Squamous Epith Cells Urine Bacteria Urine Mucus 01/17/20 00:15 WBC RBC Hgb Hct MCV MCH MCHC RDW Std Deviation RDW Coeff of Francis Plt Count MPV Immature Gran % (Auto) Neut % (Auto) Lymph % (Auto) Shelby % (Auto) Eos % (Auto) Baso % (Auto) Absolute Neuts (auto) Absolute Lymphs (auto) Nucleated RBC % Sodium Potassium Chloride Carbon Dioxide Anion Gap BUN Creatinine Estim Creat Clear Calc Est GFR (MDRD) Af Amer Est GFR (MDRD) Non-Af BUN/Creatinine Ratio Glucose Calcium Total Bilirubin AST ALT Alkaline Phosphatase Total Protein Albumin Globulin Albumin/Globulin Ratio Lipase Serum , Qual Urine Color Yellow Urine Clarity Clear Urine pH 6.0 Ur Specific [place] 1.025 Urine Protein Negative Urine Glucose (UA) Normal Urine Ketones Negative Urine Occult Blood Negative Urine Nitrite Negative Urine Bilirubin Negative Urine Urobilinogen Normal Ur Leukocyte Esterase 25 H Urine RBC 0 SEEN Urine WBC 0-5 SEEN Ur Squamous Epith Cells 0-5 SEEN Urine Bacteria RARE Urine Mucus 0 SEEN Clinical Impression(s) from Imaging Studies Abdomen/Pelvis CT 01/17/20 00:05 IMPRESSION: No evidence of bowel obstruction. Stool is present throughout the colon which may represent constipation. 2 cm coarse calcification right lower quadrant. Considerations are an appendicolith associated with a dilated appendix versus a right ovarian neoplasm. Pelvic ultrasound may prove useful. Tiny nonobstructing left renal calculus. Electronically Signed: Cali Santiago MD at 1:49 EDT , Service support , ADDENDUM: 01/17/20 0206 IMPRESSION: No evidence of bowel obstruction. Stool is present throughout the colon which may represent constipation. 2 cm coarse calcification right lower quadrant. Considerations are an appendicolith associated with a dilated appendix versus a right ovarian neoplasm. Pelvic ultrasound may prove useful. Tiny nonobstructing left renal calculus. N.B. : The above information has been verbally conveyed by Cali Santiago MD to Ashok Cancino MD, on 01/17/2020 01:59:03 (ET). Electronically Signed: Cali Santiago MD at 1:49 EDT , Service support , ADDENDUM: 01/17/20 0229 Transvaginal US 01/17/20 02:55 IMPRESSION: No evidence of ovarian torsion as both ovaries demonstrate normal vascular flow. Enlarged right ovary containing a simple cyst and complex cyst. The complex cyst could represent a hemorrhagic cyst or an ovarian neoplasm. Recommend follow-up ultrasound after 2-3 menstrual cycles or sooner as clinically warranted. Consider [employer] consult. Free fluid in the cul-de-sac which is a nonspecific finding. Considerations include a ruptured ovarian cyst and infection. Correlate with test. Electronically Signed: Cali Santiago MD at 5:26 EDT , Service support , - Physical Exam Vitals/I&O's: Vital Signs Temp Pulse Resp BP Pulse Ox 98.5 F 91 16 116/81 H 98 01/17/20 06:45 01/17/20 06:45 01/17/20 06:45 01/17/20 06:45 01/17/20 06:45 Oxygen Delivery Method Room Air Weight: 187 lb 13.341 oz Body Mass Index (BMI) 31.2 Intake and Output for Last 24 Hours 01/15/20 01/16/20 01/17/20 23:59 23:59 23:59 Intake Total 100 / 100 Balance 100 / 100 General: Alert, Oriented x3, Cooperative HEENT: Atraumatic, PERRLA, EOMI, Normocephalic Oral: Moist Mucosa Neck: Supple Lungs: Normal air movement Cardiovascular: Regular rate Abdomen: Soft, Non-Distended, Guarding - voluntary in RLQ/Suprapubic region, Tender - RLQ suprapubic region and RLQ, - - Winces when changing position in bed Extremities: No edema, Capillary Refill Less than 3 Seconds Skin: No rashes, No breakdown Neurological: Cranial nerves II-XII grossly intact Psych/Mental Status: Normal Affect, Appropriate, Alert and oriented to time, place, person, mood and affect Laboratory Results 01/17/20 00:15: WBC 14.5 H, RBC 4.75, Hgb 14.4, Hct 42.5, MCV 89.5, MCH 30.3, MCHC 33.9, RDW Std Deviation 40.8, RDW Coeff of Francis 12.4, Plt Count 291, MPV 10.0, Immature Gran % (Auto) 0.300, Neut % (Auto) 84.9 H, Lymph % (Auto) 7.0 L, Shelby % (Auto) 7.1, Eos % (Auto) 0.5, Baso % (Auto) 0.2, Absolute Neuts (auto) 12.3 H, Absolute Lymphs (auto) 1.01, Nucleated RBC % 0 01/17/20 00:15: Sodium 140, Potassium 3.8, Chloride 108 H, Carbon Dioxide 26.0, Anion Gap 6, BUN 14, Creatinine 0.95, Estim Creat Clear Calc 74.38, Est GFR (MDRD) Af Amer 85, Est GFR (MDRD) Non-Af 71, BUN/Creatinine Ratio 14.7, Glucose 112 H, Calcium 9.2, Total Bilirubin 0.40, AST 9 L, ALT 24, Alkaline Phosphatase 94, Total Protein 7.9, Albumin 3.9, Globulin 4.0, Albumin/Globulin Ratio 1.0, Lipase 93 01/17/20 00:15: Serum , Qual NEGATIVE 01/17/20 00:15: Urine Color Yellow, Urine Clarity Clear, Urine pH 6.0, Ur Specific [place] 1.025, Urine Protein Negative, Urine Glucose (UA) Normal, Urine Ketones Negative, Urine Occult Blood Negative, Urine Nitrite Negative, Urine Bi lirubin Negative, Urine Urobilinogen Normal, Ur Leukocyte Esterase 25 H, Urine RBC 0 SEEN, Urine WBC 0-5 SEEN, Ur Squamous Epith Cells 0-5 SEEN, Urine Bacteria RARE, Urine Mucus 0 SEEN Assessment/Plan All Active Problems (Last Reviewed 03/23/18 @ 08:27 by Albina Grigsby) Abdominal pain (Acute) Ovarian cyst (Acute) Abnormal TSH (Acute) 34yo presenting with right lower quadrant pain 1. Ovarian cyst, suspected torsion - Presented with pain starting in umbilicus and migrating to RLQ/back/suprabubic region - CT showed calcified structure in RLQ and cystic structure in RLQ - US showed enlarged ovary measuring up to 6.5cm with simple cyst and complex appearing cyst. Normal blood flow on ultrasound - Mild leukocytosis at 14.5 - Patient evaluated by Dr. Scanlon from General Surgery - feels like images more likely to represent adnexal pathology than appendicitis - Abdomen mildly TTP now, but story highly concerning for intermittent adnexal torsion - Options offered to patient including expectant management and diagnostic laparoscopy. Patient agreeable to surgical intervention. Risks, benefits, indications, and alternatives to the procedure discussed with the patient including bleeding, infection, and visceral or vascular injury. Agreeable to blood products if medically necessary. Discussed low risk of infections, but that there is a possibility of requiring antibiotics or hospitalization if she develops an infection. Discussed risk of visceral or vascular injury including bowel or bladder injury. Understands that this could require prolonged hospitalization or reoperation and that there is a risk of conversion to laparotomy. Discussed that we will plan to drain the ovarian cyst or perform a cystectomy, but that there is a possibility of requiring an oophorectomy. All questions answered. Patient discussed with OR desk and added on for diagnostic laparoscopy, possible ovarian cystectomy, possible oophorectomy. Multi Select Codes - Visit Charges Office Visit/Consults: 46590 OV L4 Est - evaluated in ER and added on for surgery same day
[2020-01-17] MEDS: Bupivacaine 0.25% 30 ML Vial (08:00)
[2020-01-17] MEDS: Lactated Ringers 1,000 ML 100 ML IV ×2 (08:32→12:53)
--- NOTE | 2020-01-17 09:00 | APP_PTH ---
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 Yodit Burnham MD : 1985 BED: 1 DIS: 01/19/2020 SPEC #: [id number] RECD: 01/17/20 11:36 STATUS: SHUKRI REYousuf #: [id number] ERVIN: 01/17/20 09:[address]: Yodit Burnham DEPT: SURGICAL PATHOLOGY RECD BY: Ramos Hamm ENTERED: 01/17/20 12:47 SP TYPE: APPENDIX OTHR DR: Tammy Primary Care Phys Tissues: A - Appendix, NOS B - FOREIGN BODY Procedures: Surgery Specimen Level I Surgery Specimen Level III Surgery Specimen Level IV HEADER OPERATION: Diagnostic laparoscopy, right salpingo-oophorectomy PRE-OP DIAGNOSIS: Abdominal pain; ovarian cyst TISSUE SUBMITTED: A - Appendix, right ovary and fallopian tube, B - Stool MICROSCOPIC DIAGNOSIS A. Appendix, right ovary and fallopian tube: Fallopian tube - focal hematosalpinx and acute and chronic inflammation. Ovary - physiologic follicular and hemorrhagic corpus luteal cysts. Appendix - periappendiceal adipose tissue with acute and chronic inflammation. Tubo-ovarian adhesion including adherent appendix. See comment. B. Stool: Fragments of fecal material. SJ:rg 01/18/20 COMMENT A. The entire appendix is examined and no evidence of acute inflammation in the luminal mucosa. Detached fragments of hemorrhagic tissue is consistent with portion of hemorrhagic corpus luteum. MICROSCOPIC DESCRIPTION Slides are reviewed. GROSS DESCRIPTION A - Received is one container labeled with the patient's name and designated appendix, right ovary and fallopian tube. The specimen consists of adherent fallopian tube, ovary and appendix. A portion of appendix is noted measuring 4.5 cm in length and up to 1 cm in diameter. The proximal resection margin is stapled. The tip is not clearly identified. The fallopian tube portion measures 10 cm in length and 0.5 to 2.5 cm in diameter. The fimbrial end is not identified. The distal 5 cm portion of the fallopian tube is dilated and measures up to 2 cm in diameter. The adherent ovary measures 3 x 2 x 2 cm. The entire specimen is inked black. Also present in the container is a detached piece of gregg soft tissue measuring 2?x 1 x 0.2 cm. Sections of distal dilated portion of fallopian tube reveals it is filled with serosangrenous fluid. The proximal portion of fallopian tube reveals unremarkable cut surfaces. Sections of the ovary reveal multiple cysts filled with clear fluid, the largest measuring 0.5 cm in greatest dimension. A corpus luteum is also noted measuring 1 cm in greatest dimension. [employer] sections are submitted in ten?cassettes as follows: 1-3 - appendix and adjacent periappendiceal adipose tissue, entirely submitted (1 - proximal portion, 2 - distal portion including tip of appendix, 3 - periappendiceal adipose tissue), 47??fallopian tube (4-6 - dilated portion of fallopian tube, 7 - proximal portion of fallopian tube and detached piece of adipose tissue), 8-10 - ovary. B - Received in fixative is one container labeled with the patient's name and designated stool. The specimen consists of multiple fragments of brownish fecal material that in aggregate measure 4 x 3 x 1.5 cm. The specimen is for gross identification only. / ABIMBOLA:linda 01/17/20 TC:5 CPT: 58740, 19175, 05737
--- NOTE | 2020-01-17 10:55 | PCM.OPRPT ---
Problem List (1) Abdominal pain Status: Acute Qualifiers: Abdominal location: right lower quadrant Qualified Code(s): R10.31 - Right lower quadrant pain (2) Acute appendicitis Status: Acute Qualifiers: Acute appendicitis type: with localized peritonitis Appendicitis gangrene presence: with gangrene Appendicitis perforation presence: with perforation Appendicitis abscess presence: without abscess Qualified Code(s): K35.32 - Acute appendicitis with perforation and localized peritonitis, without abscess Report of Operation Date of Procedure: 01/17/20 Pre-Operative Diagnosis: Right lower quadrant pain. Possible appendicolith. Suspected tubo-ovarian disease Post-Operative Diagnosis: Severe acute gangrenous appendicitis with a large fecalith and transmural necrosis with subsequent adherence to the right tube and ovary and trans-inflammatory changes Surgery/Procedure Performed:: Laparoscopic appendectomy. Description of Surgical Findings:: I was asked to come to the operating room to assist with a laparoscopic procedure. This is a patient who had seen in the emergency room. There was a suspicion of a calcified 2 cm appendicolith. On ultrasound however it was felt to be primarily a tubo-ovarian disease. At the time of surgery per Dr. Alfaro a much more advanced process was identified. There appeared to be acute inflammation of the appendix with adherence to the sigmoid colon and adherence to the right tube and ovary. I was asked to assist. I up stage the 5 m trocar at the umbilicus to a 10-minute trocar. Carefully and tediously dissected free omental adhesions from the area. Then was able to identify the appendix flush with the cecum and used a 45 mm stapler to transect it. Unfortunately the sigmoid colon was densely adherent to the appendix at the side of the calcified appendicolith. There was transmural necrosis of that wall. The appendix was also densely adherent to the right tube and ovary. I carefully bluntly dissected the appendix free from the sigmoid colon this did require rupture of the wall and deliverance of the appendicolith with which was placed in a retrieval bag and removed. Then further blunt dissection was used to clarify the anatomy. I was able to transect the mesoappendix with a 45 mm vascular height stapler. The appendix was then still adherent to the right tube and ovary. Dr. Alfaro then completed with the gynecologic portion of that resection. The right lower quadrant was irrigated and aspirated free. A 15 mm round NAYLA drain was placed to the parveen-sigmoid colon colonic area at the site of transmural inflammation. This care area was carefully inspected and I tried to debride any remaining appendiceal mucosa. I did not see any evidence of transmural involvement or stool leakage. I elected not to proceed with any more aggressive procedure on that sigmoid at this time. Blood loss 20 cc. Specimen appendicolith and appendix attached to right tube and ovary, 15 round NAYLA drain Keon Scanlon M.D., F.A.C.S. Type of Anesthesia:: General Anesthesiologist: Vinay Guan
--- NOTE | 2020-01-17 11:24 | PCM.OPRPT ---
Problem List (1) Abdominal pain Status: Acute Qualifiers: Abdominal location: right lower quadrant Qualified Code(s): R10.31 - Right lower quadrant pain (2) Ovarian cyst Status: Acute Report of Operation Date of Procedure: 01/17/20 Pre-Operative Diagnosis: Right lower quadrant pain, Ovarian cyst, suspected ovarian torsion Post-Operative Diagnosis: Ruptured appendicitis, right hydrosalpinx Surgery/Procedure Performed:: Diagnostic laparoscopy, lysis of adhesions, right salpingoophorectomy Description of Surgical Findings:: Inflammatory adhesions between omentum and anterior abdominal wall. Inflamed appearing appendix. Appendix densely adherent to right adnexa. laboratory courier: Magaly Lloyd Type of Anesthesia:: General Special Medications: Zosyn ordered intraoperatively Specimen's removed: Right fallopian tube and ovary, appendix, stool Drains: Right lower quadrant Estimated Blood Loss (mL): 50 Fluids Replaced: 1600 Description of Procedure: The patient was taken to the operating room where general anesthesia was obtained without difficulty. She was prepped and draped in the dorsal lithotomy position. A weighted speculum was placed in the posterior aspect of the vagina and a right angle retractor was used to grasp the anterior lip of the cervix. A Zumi uterine manipulator was then placed. The patient was straight cathed. Gloves were changed and attention was redirected to the abdomen. The skin at the umbilicus was injected with 0.25% lidocaine. The skin was elevated with towel clamps and a 5mm incision was made at the base of the umbilicus with a scalpel. A veress needle was then inserted and placement was confirmed with a water drop test. Insufflation was started with an opening pressure of 0. Once the abdomen was insufflated, a 5mm port was inserted under direct visualization. 2 additional 5mm ports were then inserted in the right and left lower quadrants. The above surgical findings were noted. The ligasure was used to dissect the omental adhesions from the anterior abdominal wall. On inspection, suspicion was high for appendicitis and Dr. Scanlon was called for intra-operative consult. Please see separate operative report for his portion of the procedure. Once Dr. Scanlon had completed lysis of adhesions and detached the appendix, attention was directed to the right adnexa. A large hydrosalpinx was noted to be densely adherent to the ovary and appendix. The ureter was identified and found to be lateral to our operative site. The adnexa was elevated and the uteroovarian ligament was cauterized and transected using the ligasure. The infundibulopelvic ligament was then identified, cauterized and transected with the ligasure. The remainder of the broad ligament was sequentially grasped, cauterized, and transected with the ligasure until the specimen was . The pedicle was inspected and hemostasis was noted. The specimen was then placed in a 12mm bag and removed through the 12mm port without difficulty. The pelvis was reinspected and all free fluid was suctioned out. The pelvis was irrigated and hemostasis was again noted of all surgical pedicles. A NAYLA drain was then placed in the right lower quadrant. All instruments and ports were then removed from the abdominal cavity. The fascia of the umbilical port was closed in a [id number] fashion using 0-vicryl suture. The left lower quadrant port was closed in a subcuticular fashion. The NAYLA drain was sutured in place. Steri strips and coverlets were then placed over the incisions. The uterine manipulator was then removed. All counts were correct x2. The patient was awakened from anesthesia and taken to the recovery room in stable condition. - Complications None - Admit VTE Documentation VTE Present on Admission: No Multi Select Codes - Urinary/Genital Urinary/Genital CPT Codes: 89552 Laproscopic BS/O - unilateral salpingoophorectomy
--- NOTE | 2020-01-17 13:30 | DCINST_ITS ---
Discharge Diet: Light diet - advance as tolerated - if you have questions about your diet instructions, please talk to you doctor. Discharge Activity: May Not Drive - for 1 week or while taking narcotic pain medicine. May shower in (days): 1 Lifting Restrictions: 10 pounds Call your doctor if your incision/area has: Continuous Slow Oozing, Sudden Increased Bleeding, Increased Pain/ Swelling, Increased Redness, Foul Smelling Discharge Call your doctor if you observe: Fever of 101 or Higher Suture Line Care: Avoid Pulling/Pushing, Avoid Pinching/Bending Additional Dressing/Incision Instructions:: Change or remove plastic dressings in 2 days. Leave steri-strips in place for 1 week. Insight may have its dressing removed tomorrow and you may shower. You may reapply a dry gauze d ressing or Band-Aid to protect the wound while healing Allergies/Adverse Reactions: Allergies Sulfa (Sulfonamide Antibiotics) Allergy (Verified 01/16/20 23:56) Hives Medications to take at Discharge vitamin#30 30 mg iron-10 mg iron-folic acid 1 mg-omg3 capsule 1 cap PO DAILY cap 03/16/18 Naproxen [Naprosyn] 250 - 500 mg PO Q8H PRN PRN #30 tab 01/17/20 Oxycodone HCl/Acetaminophen [Percocet 5-325] 1 - 2 tab PO Q6H PRN PRN 7 Days #10 tab 01/17/20 The following prescriptions were given: Naproxen [Naprosyn] 250 - 500 mg PO Q8H PRN PRN #30 tab PRN Reason: MILD PAIN Transmission Status: Received by [facility] Oxycodone HCl/Acetaminophen [Percocet 5-325] 1 - 2 tab PO Q6H PRN PRN 7 Days #10 tab PRN Reason: Pain Transmission Status: Received by [facility] Primary Care Physician: Care Physician,No Primary [Primary Care Provider] - Test Results: Test results from this visit will be discussed in further detail at your follow- up appointment, if applicable. Please Follow Up With: Keon Scanlon MD - [phone] When: Call for phone call or virtual appointment or onsite visit 10 days.
[2020-01-17] MEDS: HYDROcodone Bitartrate/Apap 5/325 Tablet PO ×2 (14:56→17:12)
--- NOTE | 2020-01-17 16:45 | PCM.PN.SRG ---
Patient Problems: Active and Suspected Problems (Last Reviewed 03/23/18 @ 08:27 by Albina Grigsby) Abdominal pain (Acute) Ovarian cyst (Acute) Acute appendicitis (Acute) Subjective: Patient is resting. Fatigue from today's event. No nausea. No flatus - Physical Exam Vitals/I&O's: Vital Signs Temp Pulse Resp BP Pulse Ox 98.0 F 91 18 110/58 L 98 01/17/20 14:14 01/17/20 14:14 01/17/20 14:14 01/17/20 14:14 01/17/20 14:14 Oxygen Delivery Method Room Air Weight: 185 lb 13.595 oz Body Mass Index (BMI) 30.9 Intake and Output for Last 24 Hours 01/15/20 01/16/20 01/17/20 23:59 23:59 23:59 Intake Total 601.875 / 601.875 Output Total 205 / 205 Balance 396.875 / 396.875 Extremities: - - Distended, quiet, NAYLA serous slight old bloody drainage. Laboratory Results 01/17/20 00:15: WBC 14.5 H, RBC 4.75, Hgb 14.4, Hct 42.5, MCV 89.5, MCH 30.3, MCHC 33.9, RDW Std Deviation 40.8, RDW Coeff of Francis 12.4, Plt Count 291, MPV 10.0, Immature Gran % (Auto) 0.300, Neut % (Auto) 84.9 H, Lymph % (Auto) 7.0 L, [place] % (Auto) 7.1, Eos % (Auto) 0.5, Baso % (Auto) 0.2, Absolute Neuts (auto) 12.3 H, Absolute Lymphs (auto) 1.01, Nucleated RBC % 0 01/17/20 00:15: Sodium 140, Potassium 3.8, Chloride 108 H, Carbon Dioxide 26.0, Anion Gap 6, BUN 14, Creatinine 0.95, Estim Creat Clear Calc 74.38, Est GFR (MDRD) Af Amer 85, Est GFR (MDRD) Non-Af 71, BUN/Creatinine Ratio 14.7, Glucose 112 H, Calcium 9.2, Total Bilirubin 0.40, AST 9 L, ALT 24, Alkaline Phosphatase 94, Total Protein 7.9, Albumin 3.9, Globulin 4.0, Albumin/Globulin Ratio 1.0, Lipase 93 01/17/20 00:15: Serum , Qual NEGATIVE 01/17/20 00:15: Urine Color Yellow, Urine Clarity Clear, Urine pH 6.0, Ur Specific [place] 1.025, Urine Protein Negative, Urine Glucose (UA) Normal, Urine Ketones Negative, Urine Occult Blood Negative, Urine Nitrite Negative, Urine Bilirubin Negative, Urine Urobilinogen Normal, Ur Leukocyte Esterase 25 H, Urine RBC 0 SEEN, Urine WBC 0-5 SEEN, Ur Squamous Epith Cells 0-5 SEEN, Urine Bacteria RARE, Urine Mucus 0 SEEN Current Medications Acetaminophen (Tylenol) 650 mg PO Q6H PRN PRN PRN Reason: Pain Score 1-10/10 Hydrocodone Bitart/Acetaminophen ([place] 5mg-325mg) 1 - 2 tablet PO Q6H PRN PRN PRN Reason: Pain Score 1-10/10 Last Admin: 01/17/20 14:56 Dose: 1 tablet Documented by: Lactated Ringer's () 1,000 mls @ 100 mls/hr IV .Q10H [facility] Last Admin: 01/17/20 12:53 Dose: 100 mls/hr Documented by: Piperacillin Sod/Tazobactam (Sod 3.375 gm/ Sodium Chloride) 50 mls @ 12.5 mls/hr IV Q8 [facility] Last Admin: 01/17/20 14:46 Dose: 12.5 mls/hr Documented by: Morphine Sulfate () 2 - 4 mg IV Q1H PRN PRN PRN Reason: Pain Score 1-10/10 Ondansetron HCl (Zofran) 4 mg IM X1 PRN PRN Reason: NAUSEA Sodium Chloride () 10 - 40 ml IV UD PRN PRN Reason: SALINE FLUSH Medical Necessity - Tobacco Use Smoking Status: Never smoker Assessment/Plan All Active Problems (Last Reviewed 03/23/18 @ 08:27 by Albina Grigsby) Abdominal pain (Acute) Ovarian cyst (Acute) Acute appendicitis (Acute) Abnormal TSH (Acute) Patient encouraged to mobilize. She is going to have a degree of ileus secondary to the amount of inflammatory change. I will proceed slowly. I will keep her on sips and chips. She has a significant amount of fecal loading that was identified on CT. She has no specific concerns tonight. We will continue IV antibiotics and conservative care. Keon Scanlon M.D., F.A.C.S.
[2020-01-17] MEDS: 0.9% Normal Saline 1,000 ML 100 ML IV (17:11)
--- NOTE | 2020-01-17 20:15 | NURSING ---
pt ambulated a lap in hallway and in pt's room. pt refused to sit up in chair at this time.
[2020-01-18 02:20] VITALS: BP 100/61; PULSE 104; RESP 16; TEMP 37.1; O2SAT 95
[2020-01-18] MEDS: Acetaminophen 325 MG Tablet 650 MG PO ×2 (02:23→08:27)
[2020-01-18] MEDS: 0.9% Normal Saline 1,000 ML 100 ML IV (04:43)
--- NOTE | 2020-01-18 06:01 | PN.SURG_ITS ---
Patient Problems: Active and Suspected Problems (Last Reviewed 03/23/18 @ 08:27 by Albina Grigsby) Abdominal pain (Acute) Ovarian cyst (Acute) Acute appendicitis (Acute) Subjective: Patient notes soreness throughout the entire right abdomen. No nausea. She has been able to void. No flatus. She has been able to ambulate. - Physical Exam Vitals/I&O's: Vital Signs Temp Pulse Resp BP Pulse Ox 98.7 F 104 H 16 100/61 95 01/18/20 02:20 01/18/20 02:20 01/18/20 02:20 01/18/20 02:20 01/18/20 02:20 Oxygen Delivery Method Room Air Weight: 185 lb 13.595 oz Body Mass Index (BMI) 30.9 Intake and Output for Last 24 Hours 01/16/20 01/17/20 01/18/20 23:59 23:59 23:59 Intake Total 963.535 / 4396.108 5550.67 / 1126.67 Output Total 425 / 625 460 / 460 Balance 538.535 / 398.535 666.67 / 666.67 Lungs: Clear to auscultation, Normal air movement Abdomen: Soft, Hypoactive Bowel Sounds, - - Diffuse tenderness right mid abdomen, serosanguineous NAYLA output Current Medications Acetaminophen (Tylenol) 650 mg PO Q6H PRN PRN PRN Reason: Pain Score 1-10/10 Last Admin: 01/18/20 02:23 Dose: 650 mg Documented by: Hydrocodone Bitart/Acetaminophen ([place] 5mg-325mg) 1 - 2 tablet PO Q6H PRN PRN PRN Reason: Pain Score 1-10/10 Last Admin: 01/17/20 17:12 Dose: 1 tablet Documented by: Piperacillin Sod/Tazobactam (Sod 3.375 gm/ Sodium Chloride) 50 mls @ 12.5 mls/hr IV Q8 [facility] Last Admin: 01/18/20 05:09 Dose: 12.5 mls/hr Documented by: Sodium Chloride () 1,000 mls @ 100 mls/hr IV .Q10H [facility] Last Admin: 01/18/20 04:43 Dose: 100 mls/hr Documented by: Morphine Sulfate () 2 - 4 mg IV Q1H PRN PRN PRN Reason: Pain Score 1-10/10 Ondansetron HCl (Zofran) 4 mg IM X1 PRN PRN Reason: NAUSEA Sodium Chloride () 10 - 40 ml IV UD PRN PRN Reason: SALINE FLUSH Medical Necessity - Tobacco Use Smoking Status: Never smoker Assessment/Plan All Active Problems (Last Reviewed 03/23/18 @ 08:27 by Albina Grigsby) Abdominal pain (Acute) Ovarian cyst (Acute) Acute appendicitis (Acute) Abnormal TSH (Acute) Will initiate clear liquids and advance as tolerated. The patient is again been encouraged to mobilize. I will continue IV antibiotics. Will await return of bowel function. Progress however at this point is quite good Keon Scanlon M.D., F.A.C.S.
--- NOTE | 2020-01-18 06:04 | PCM.DC.SUM ---
Discharge Date and Diagnosis Date of Admission: 01/17/20 Date of Discharge: 01/19/20 - Primary Discharge Diagnosis Acute Problems: Active Problems (Last Reviewed 03/23/18 @ 08:27 by Albina Grigsby) Abdominal pain (Acute) Ovarian cyst (Acute) Acute appendicitis (Acute) Acute gangrenous appendicitis with dense inflammatory adhesion to the sigmoid colon and inflammatory involvement of the right tube and ovary Hospital Course and Treatment Operations: - - Laparoscopic appendectomy with laparoscopic right salpingo-oophorectomy and abdominal drainage Summary of Care Provided: The patient is a 34 year old F who presented to the emergency room with generalized abdominal pain that localized to the right lower quadrant. 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 Additional ultrasound suggested right tubo-ovarian disease. The patient was taken to the operating room on the morning of January 17, [address] Yodit Burnham and it was rapidly identified that the patient had a severe appendicitis with more extensive involvement. I was asked to reengage. The large appendicolith had essentially caused transmural inflammation causing dense adhesion to the sigmoid colon. This had to be tediously bluntly and sharply dissected free. Then there was additional involvement of the appendix to the right tube/ovary. I performed the appendectomy and Dr. Burnham performed the salpingo-oophorectomy. A NAYLA drain was left in place. The patient was covered with therapeutic antibiotics. She made gradual improvement. NAYLA drain removed prior to discharge. She is discharged on a short course of oral antibiotics Augmentin 875 mg twice daily. Final pathology is still pending. - Physical Exam Vitals/I&O's: Vital Signs Temp Pulse Resp BP Pulse Ox 98.7 F 104 H 16 100/61 95 01/18/20 02:20 01/18/20 02:20 01/18/20 02:20 01/18/20 02:20 01/18/20 02:20 Oxygen Delivery Method Room Air Weight: 185 lb 13.595 oz Body Mass Index (BMI) 30.9 Intake and Output for Last 24 Hours 01/16/20 01/17/20 01/18/20 23:59 23:59 23:59 Intake Total 963.535 / 7265.503 5005.67 / 1126.67 Output Total 425 / 625 460 / 460 Balance 538.535 / 398.535 666.67 / 666.67 Current Medications Acetaminophen (Tylenol) 650 mg PO Q6H PRN PRN PRN Reason: Pain Score 1-10/10 Last Admin: 01/18/20 02:23 Dose: 650 mg Documented by: Hydrocodone Bitart/Acetaminophen ([place] 5mg-325mg) 1 - 2 tablet PO Q6H PRN PRN PRN Reason: Pain Score 1-10/10 Last Admin: 01/17/20 17:12 Dose: 1 tablet Documented by: Piperacillin Sod/Tazobactam (Sod 3.375 gm/ Sodium Chloride) 50 mls @ 12.5 mls/hr IV Q8 [facility] Last Admin: 01/18/20 05:09 Dose: 12.5 mls/hr Documented by: Sodium Chloride () 1,000 mls @ 50 mls/hr IV .Q20H [facility] Last Admin: 01/18/20 04:43 Dose: 100 mls/hr Documented by: Morphine Sulfate () 2 - 4 mg IV Q1H PRN PRN PRN Reason: Pain Score 1-10/10 Ondansetron HCl (Zofran) 4 mg IM X1 PRN PRN Reason: NAUSEA Sodium Chloride () 10 - 40 ml IV UD PRN PRN Reason: SALINE FLUSH Discharge Diet: Light diet - advance as tolerated - if you have questions about your diet instructions, please talk to you doctor. Discharge Activity: May Not Drive - for 1 week or while taking narcotic pain medicine. May shower in (days): 1 Call your doctor if your incision/area has: Continuous Slow Oozing, Sudden Increased Bleeding, Increased Pain/ Swelling, Increased Redness, Foul Smelling Discharge Call your doctor if you observe: Fever of 101 or Higher Suture Line Care: Avoid Pulling/Pushing, Avoid Pinching/Bending Additional Dressing/Incision Instructions:: Change or remove dressing in 2 days. Leave steri-strips in place for 1 week. Home Medications: Medications to take at Discharge vitamin#30 30 mg iron-10 mg iron-folic acid 1 mg-omg3 capsule 1 cap PO DAILY cap 03/16/18 Naproxen [Naprosyn] 250 - 500 mg PO Q8H PRN PRN #30 tab 01/17/20 Oxycodone HCl/Acetaminophen [Percocet 5-325] 1 - 2 tab PO Q6H PRN PRN 7 Days #10 tab 01/17/20 Amoxicillin/Potassium Clav [Augmentin 875-125 Tablet] 1 ea PO BID #10 tab 01/19/20 Following Prescriptions Were Given to Patient: Amoxicillin/Potassium Clav [Augmentin 875-125 Tablet] 1 ea PO BID #10 tab Transmission Status: Received by [facility]/pharmacy #[id number] Naproxen [Naprosyn] 250 - 500 mg PO Q8H PRN PRN #30 tab PRN Reason: MILD PAIN Transmission Status: Received by [facility] Oxycodone HCl/Acetaminophen [Percocet 5-325] 1 - 2 tab PO Q6H PRN PRN 7 Days #10 tab PRN Reason: Pain Transmission Status: Received by [facility] Primary Care Physician: Care Physician,No Primary [Primary Care Provider] - Please Follow Up With: Keon Scanlon MD - [phone] When: Call to make an appointment to be seen in about 10 days. Medical Necessity - Tobacco Use Smoking Status: Never smoker Meaningful Use Info Meaningful Use Diagnoses (Choose all that apply): None applicable
[2020-01-18 06:53] LABS: Absolute Lymphocyte Count 1.05 X10^3/uL (0.83-4.51); Basophil# 0.03 X10^3/uL; Basophil% 0.2 % (0-1); Eosinophil# 0.01 X10^3/uL; Eosinophils% 0.1 % (0-5); Hematocrit 36.3 % (37-47); Hemoglobin 11.8 g/dL (12.0-15.0); Lymphocyte # 1.05 X10^3/ul (4.0); Lymphocyte % 7.5 % (19-41); Mean Corp Hgb Conc 32.5 g/dL (32-36); Mean Corpuscular Hgb 29.7 pg (27.0-32.0); Mean Corpuscular Volume 91.4 fL (81-99); Monocyte# 0.92 X10^3/uL; Monocyte% 6.6 % (0-10); NRBC Flagged by Analyzer 0 % (0-5); Neutrophil # 11.99 X10^3/uL (2.7-7.7); Neutrophil % 85.3 % (47-70); Platelet Count 251 K/mm3 (150-450); RBC Distribution Width CV 12.8 % (11.6-14.6); RBC Distribution Width SD 42.6 fl (35.1-43.9); Red Blood Count 3.97 M/mm3 (4.2-5.4)
[2020-01-18 07:22] LABS: Anion Gap 6 (5-15); BUN 10 mg/dL (7-18); BUN/Creat Ratio 13.3 RATIO (10-20); Calcium,Total 7.9 mg/dL (8.5-10.1); Chloride 107 mmol/L (98-107); Creatinine, Serum 0.75 mg/dL (0.55-1.02); EST Glomerular Filtration Rate 93 mL/min (>60); Est Glom Filt Rate - Afr Amer 113 mL/min (>60); Estimated Creatinine Clearance 94.21 ml/min; Glucose 90 mg/dL (74-106); Potassium 3.7 mmol/L (3.5-5.1); Sodium Level 135 mmol/L (136-145)
[2020-01-18 07:39] VITALS: BP 100/74; PULSE 85; RESP 16; TEMP 36.8; O2SAT 98
--- NOTE | 2020-01-18 07:46 | PN.OBGYN_ITS ---
Patient Problems: Active and Suspected Problems (Last Reviewed 03/23/18 @ 08:27 by Albina Grigsby) Abdominal pain (Acute) Ovarian cyst (Acute) Acute appendicitis (Acute) Subjective: Patient seen and examined this morning. Doing well. Reports feels much better than before surgery. Feeling sore from incisions, but pain well controlled. Denies nausea and vomiting. Tolerating sips of fluids. Not yet passing gas. Has been able to ambulate and was able to get up in chair overnight. Voiding without difficulty. Objective: Laboratory Results - last 24 hr 01/18/20 01/18/20 06:25 06:25 WBC 14.0 H RBC 3.97 L Hgb 11.8 L Hct 36.3 L MCV 91.4 MCH 29.7 MCHC 32.5 RDW Std Deviation 42.6 RDW Coeff of Francis 12.8 Plt Count 251 MPV 10.0 Immature Gran % (Auto) 0.300 Neut % (Auto) 85.3 H Lymph % (Auto) 7.5 L [place] % (Auto) 6.6 Eos % (Auto) 0.1 Baso % (Auto) 0.2 Absolute Neuts (auto) 12.0 H Absolute Lymphs (auto) 1.05 Nucleated RBC % 0 Sodium 135 L Potassium 3.7 Chloride 107 Carbon Dioxide 22.0 Anion Gap 6 BUN 10 Creatinine 0.75 Estim Creat Clear Calc 94.21 Est GFR (MDRD) Af Amer 113 Est GFR (MDRD) Non-Af 93 BUN/Creatinine Ratio 13.3 Glucose 90 Calcium 7.9 L - Physical Exam Vitals/I&O's: Vital Signs Temp Pulse Resp BP Pulse Ox 98.2 F 85 16 100/74 98 01/18/20 07:39 01/18/20 07:39 01/18/20 07:39 01/18/20 07:39 01/18/20 07:39 Oxygen Delivery Method Room Air Weight: 185 lb 13.595 oz Body Mass Index (BMI) 30.9 Intake and Output for Last 24 Hours 01/16/20 01/17/20 01/18/20 23:59 23:59 23:59 Intake Total 963.535 / 8942.257 9972.00 / 1425.00 Output Total 425 / 625 460 / 460 Balance 538.535 / 398.535 965.00 / 965.00 General: Alert, Oriented x3, Cooperative, Well developed, Well nourished HEENT: Atraumatic, PERRLA, EOMI, Normocephalic Oral: Moist Mucosa Neck: Supple Lungs: Clear to auscultation, Normal air movement Cardiovascular: Regular rate, Regular Rhythm Abdomen: Soft, Non-Distended, Hypoactive Bowel Sounds, Tender - appropriately TTP, - - Incisions C/D/I with dressings in place. Drain with serosanguinous fluid Extremities: No edema, No Calf Tenderness Neurological: Cranial nerves II-XII grossly intact, Neuro grossly intact Psych/Mental Status: Normal Affect, Appropriate, Alert and oriented to time, place, person, mood and affect Laboratory Results 01/18/20 06:25: WBC 14.0 H, RBC 3.97 L, Hgb 11.8 L, Hct 36.3 L, MCV 91.4, MCH 29.7, MCHC 32.5, RDW Std Deviation 42.6, RDW Coeff of Francis 12.8, Plt Count 251, MPV 10.0, Immature Gran % (Auto) 0.300, Neut % (Auto) 85.3 H, Lymph % (Auto) 7.5 L, [place] % (Auto) 6.6, Eos % (Auto) 0.1, Baso % (Auto) 0.2, Absolute Neuts (auto) 12.0 H, Absolute Lymphs (auto) 1.05, Nucleated RBC % 0 01/18/20 06:25: Sodium 135 L, Potassium 3.7, Chloride 107, Carbon Dioxide 22.0, Anion Gap 6, BUN 10, Creatinine 0.75, Estim Creat Clear Calc 94.21, Est GFR (MDRD) Af Amer 113, Est GFR (MDRD) Non-Af 93, BUN/Creatinine Ratio 13.3, Glucose 90, Calcium 7.9 L Current Medications Acetaminophen (Tylenol) 650 mg PO Q6H PRN PRN PRN Reason: Pain Score 1-03/10 Last Admin: 01/18/20 02:23 Dose: 650 mg Documented by: Hydrocodone Bitart/Acetaminophen ([place] 5mg-325mg) 1 - 2 tablet PO Q6H PRN PRN PRN Reason: Pain Score 1-03/10 Last Admin: 01/17/20 17:12 Dose: 1 tablet Documented by: Piperacillin Sod/Tazobactam (Sod 3.375 gm/ Sodium Chloride) 50 mls @ 12.5 mls/hr IV Q8 [facility] Last Admin: 01/18/20 05:09 Dose: 12.5 mls/hr Documented by: Sodium Chloride () 1,000 mls @ 50 mls/hr IV .Q20H [facility] Last Infusion: 01/18/20 07:42 Dose: 50 mls/hr Documented by: Morphine Sulfate () 2 - 4 mg IV Q1H PRN PRN PRN Reason: Pain Score 1-10/10 Ondansetron HCl (Zofran) 4 mg IM X1 PRN PRN Reason: NAUSEA Sodium Chloride () 10 - 40 ml IV UD PRN PRN Reason: SALINE FLUSH Medical Necessity - Tobacco Use Smoking Status: Never smoker Assessment/Plan All Active Problems (Last Reviewed 03/23/18 @ 08:27 by Albina Grigsby) Abdominal pain (Acute) Ovarian cyst (Acute) Acute appendicitis (Acute) Abnormal TSH (Acute) 34yo F POD#1 s/p diagnostic laparoscopy, IVY, appendectomy, right salpingoophorectomy Post-op state - Diet advanced to clears by Dr. Scanlon this morning - diet per gen surg - Not yet passing gas, but tolerating clears without nausea or vomiting - Ambulating and voiding without difficulty - Pain well controlled - On zosyn - WBC trended from 14.5 to 14.0 - Dispo per gen surg
--- NOTE | 2020-01-18 10:35 | CASEMGMT ---
RN SAUNDRA Face to Face with patient for initial transition planning/care coordination assessment. RN CM introduced self and role at [facility]. Patient lying in bed, alert and oriented. Patient willing to participate in assessment and is able to answer all questions appropriately. Care providers, pharmacy, and demographics verified. Patient wishes to discharge home, denies need for home health at this time. Patient states she has no further needs or concerns at this time. CM to follow for discharge planning needs that may arise. PCP: No PCP, Patient provided with PCP list Specialists: [facility] Pharmacy: [facility] Insurance: [employer] Prescription Benefit: yes Living Will/HPOA: none LNOK: Living Arrangements: Patient lives with in a mobile home with 3 steps and railing to enter the home. Patient is independent Transportation: self/ DME/HHC: Patient denies previous HHC or DME Disposition Plan: Patient to discharge home with family support and follow-up plans in place. Pricilla JUNIOR, RN, CM
[2020-01-18] MEDS: HYDROcodone Bitartrate/Apap 5/325 Tablet PO ×2 (11:52→17:18)
[2020-01-18 13:56] VITALS: BP 108/74; PULSE 110; RESP 24; TEMP 36.6; O2SAT 97
[2020-01-18 20:39] VITALS: BP 102/72; PULSE 103; RESP 16; TEMP 36.9; O2SAT 95
[2020-01-18] MEDS: 0.9% Normal Saline 1,000 ML 50 ML IV (20:41)
[2020-01-19 03:04] VITALS: BP 113/75; PULSE 107; RESP 16; TEMP 37.3; O2SAT 95
[2020-01-19 05:34] LABS: Absolute Lymphocyte Count 0.78 X10^3/uL (0.83-4.51); Absolute Neutrophil Count 11.4 X10^3/uL (2.0-7.7); Basophil# 0.01 X10^3/uL; Basophil% 0.1 % (0-1); Eosinophil# 0.04 X10^3/uL; Eosinophils% 0.3 % (0-5); Hematocrit 34.6 % (37-47); Hemoglobin 11.4 g/dL (12.0-15.0); Lymphocyte # 0.78 X10^3/ul (4.0); Lymphocyte % 5.9 % (19-41); Mean Corp Hgb Conc 32.9 g/dL (32-36); Mean Corpuscular Hgb 30.1 pg (27.0-32.0); Mean Corpuscular Volume 91.3 fL (81-99); Mean Platelet Vol. 9.8 fl (6.2-12.0); Monocyte% 6.8 % (0-10); NRBC Flagged by Analyzer 0 % (0-5); Neutrophil # 11.35 X10^3/uL (2.7-7.7); Neutrophil % 86.3 % (47-70); Platelet Count 245 K/mm3 (150-450); RBC Distribution Width CV 12.7 % (11.6-14.6); RBC Distribution Width SD 42.1 fl (35.1-43.9); Red Blood Count 3.79 M/mm3 (4.2-5.4); White Blood Count 13.2 K/mm3 (4.4-11.0)
--- NOTE | 2020-01-19 06:21 | PCM.PN.SRG ---
Patient Problems: Active and Suspected Problems (Last Reviewed 03/23/18 @ 08:27 by Albina Grigsby) Abdominal pain (Acute) Ovarian cyst (Acute) Acute appendicitis (Acute) Subjective: Having less pain. No nausea. She is feeling bloated. She has not had any flatus. - Physical Exam Vitals/I&O's: Vital Signs Temp Pulse Resp BP Pulse Ox 99.2 F H 107 H 16 113/75 95 01/19/20 03:04 01/19/20 03:04 01/19/20 03:04 01/19/20 03:04 01/19/20 03:04 Oxygen Delivery Method Room Air Weight: 185 lb 13.595 oz Body Mass Index (BMI) 30.9 Intake and Output for Last 24 Hours 01/17/20 01/18/20 01/19/20 23:59 23:59 23:59 Intake Total 963.535 / 5671.078 6490.17 / 2794.17 250 / 250 Output Total 425 / 625 720 / 730 10 / 10 Balance 538.535 / 839.786 1915.17 / 2064.17 240 / 240 Abdomen: Soft, Hypoactive Bowel Sounds, Distended, - - NAYLA has serosanguineous drainage. Laboratory Results 01/18/20 06:25: WBC 14.0 H, RBC 3.97 L, Hgb 11.8 L, Hct 36.3 L, MCV 91.4, MCH 29.7, MCHC 32.5, RDW Std Deviation 42.6, RDW Coeff of Francis 12.8, Plt Count 251, MPV 10.0, Immature Gran % (Auto) 0.300, Neut % (Auto) 85.3 H, Lymph % (Auto) 7.5 L, [place] % (Auto) 6.6, Eos % (Auto) 0.1, Baso % (Auto) 0.2, Absolute Neuts (auto) 12.0 H, Absolute Lymphs (auto) 1.05, Nucleated RBC % 0 01/18/20 06:25: Sodium 135 L, Potassium 3.7, Chloride 107, Carbon Dioxide 22.0, Anion Gap 6, BUN 10, Creatinine 0.75, Estim Creat Clear Calc 94.21, Est GFR (MDRD) Af Amer 113, Est GFR (MDRD) Non-Af 93, BUN/Creatinine Ratio 13.3, Glucose 90, Calcium 7.9 L 01/19/20 05:20: WBC 13.2 H, RBC 3.79 L, Hgb 11.4 L, Hct 34.6 L, MCV 91.3, MCH 30.1, MCHC 32.9, RDW Std Deviation 42.1, RDW Coeff of Francis 12.7, Plt Count 245, MPV 9.8, Immature Gran % (Auto) 0.600, Neut % (Auto) 86.3 H, Lymph % (Auto) 5.9 L, [place] % (Auto) 6.8, Eos % (Auto) 0.3, Baso % (Auto) 0.1, Absolute Neuts (auto) 11.4 H, Absolute Lymphs (auto) 0.78 L, Nucleated RBC % 0 Current Medications Acetaminophen (Tylenol) 650 mg PO Q6H PRN PRN PRN Reason: Pain Score 1-10/10 Last Admin: 01/18/20 08:27 Dose: 650 mg Documented by: Hydrocodone Bitart/Acetaminophen ([place] 5mg-325mg) 1 - 2 tablet PO Q6H PRN PRN PRN Reason: Pain Score 1-10/10 Last Admin: 01/18/20 17:18 Dose: 1 tablet Documented by: Piperacillin Sod/Tazobactam (Sod 3.375 gm/ Sodium Chloride) 50 mls @ 12.5 mls/hr IV Q8 [facility] Last Admin: 01/19/20 05:15 Dose: 12.5 mls/hr Documented by: Sodium Chloride () 1,000 mls @ 50 mls/hr IV .Q20H [facility] Last Admin: 01/18/20 20:41 Dose: 50 mls/hr Documented by: Morphine Sulfate () 2 - 4 mg IV Q1H PRN PRN PRN Reason: Pain Score 1-10/10 Ondansetron HCl (Zofran) 4 mg IM X1 PRN PRN Reason: NAUSEA Sodium Chloride () 10 - 40 ml IV UD PRN PRN Reason: SALINE FLUSH Medical Necessity - Tobacco Use Smoking Status: Never smoker Assessment/Plan All Active Problems (Last Reviewed 03/23/18 @ 08:27 by Albina Grigsby) Abdominal pain (Acute) Ovarian cyst (Acute) Acute appendicitis (Acute) Abnormal TSH (Acute) Ongoing perioperative ileus. NAYLA drain removed. Mild leukocytosis persists but is improving. The patient will continue to mobilize. Awaiting flatus. Possible discharge later today pending progress. Keon Scanlon M.D., F.A.C.S.
[2020-01-19] MEDS: Lactulose 20 GM/30 ML UDC PO (06:38)
--- NOTE | 2020-01-19 08:02 | PCM.PN.OB ---
Patient Problems: Active and Suspected Problems (Last Reviewed 03/23/18 @ 08:27 by Albina Grigsby) Abdominal pain (Acute) Ovarian cyst (Acute) Acute appendicitis (Acute) Subjective: Patient seen and examined. Reports doing well. Pain well controlled. Tolerating full liquid diet without nausea or vomiting. Ambulating and voiding without difficulty. Not yet passing gas, but feels like she needs to. Denies fevers, chills, chest pain, shortness of breath. Objective: Laboratory Tests 01/19/20 01/18/20 01/18/20 Range/Units 05:20 06:25 06:25 WBC 13.2 H 14.0 H (4.4-11.0) K/mm3 RBC 3.79 L 3.97 L (4.2-5.4) M/mm3 Hgb 11.4 L 11.8 L (12.0-15.0) g/dL Hct 34.6 L 36.3 L (37-47) % MCV 91.3 91.4 (81-99) fL MCH 30.1 29.7 (27.0-32.0) pg MCHC 32.9 32.5 (32-36) g/dL RDW Std Deviation 42.1 42.6 (35.1-43.9) fl RDW Coeff of Francis 12.7 12.8 (11.6-14.6) % Plt Count 245 251 (150-450) K/mm3 MPV 9.8 10.0 (6.2-12.0) fl Immature Gran % (Auto) 0.600 0.300 (0.0-0.9) % Neut % (Auto) 86.3 H 85.3 H (47-70) % Lymph % (Auto) 5.9 L 7.5 L (19-41) % [place] % (Auto) 6.8 6.6 (0-10) % Eos % (Auto) 0.3 0.1 (0-5) % Baso % (Auto) 0.1 0.2 (0-1) % Absolute Neuts (auto) 11.4 H 12.0 H (2.0-7.7) X10^3/uL Absolute Lymphs (auto) 0.78 L 1.05 (0.83-4.51) X10^3/uL Nucleated RBC % 0 0 (0-5) % Sodium 135 L (136-145) mmol/L Potassium 3.7 (3.5-5.1) mmol/L Chloride 107 (98-107) mmol/L Carbon Dioxide 22.0 (21.0-32.0) mmol/L Anion Gap 6 (5-15) BUN 10 (7-18) mg/dL Creatinine 0.75 (0.55-1.02) mg/dL Estim Creat Clear Calc 94.21 ml/min Est GFR (MDRD) Af Amer 113 (>60) mL/min Est GFR (MDRD) Non-Af 93 (>60) mL/min BUN/Creatinine Ratio 13.3 (10-20) RATIO Glucose 90 (74-106) mg/dL Calcium 7.9 L (8.5-10.1) mg/dL Total Bilirubin (0.20-1.00) mg/dL AST (15-37) U/L ALT (13-56) U/L Alkaline Phosphatase (45-117) U/L Total Protein (6.4-8.2) g/dL Albumin (3.2-5.0) g/dL Globulin (2.2-4.2) g/dL Albumin/Globulin Ratio (0.9-2.4) RATIO Lipase (73-393) U/L Serum , Qual Negative Urine Color (Yellow) Urine Clarity (Clear) Urine pH (5.0 - 8.0) Ur Specific [place] (1.002-1.030) Urine Protein (Negative) mg/dl Urine Glucose (UA) (Normal) mg/dl Urine Ketones (Negative) mg/dl Urine Occult Blood (Negative) /ul Urine Nitrite (Negative) Urine Bilirubin (Negative) mg/dL Urine Urobilinogen (Normal) mg/dl Ur Leukocyte Esterase (Negative) /ul Urine RBC (0-5) /hpf Urine WBC (0-5) /hpf Ur Squamous Epith Cells (5-10) /hpf Urine Bacteria (None Seen) /hpf Urine Mucus (<or=2+) /hpf 01/17/20 01/17/20 01/17/20 Range/Units 00:15 00:15 00:15 WBC (4.4-11.0) K/mm3 RBC (4.2-5.4) M/mm3 Hgb (12.0-15.0) g/dL Hct (37-47) % MCV (81-99) fL MCH (27.0-32.0) pg MCHC (32-36) g/dL RDW Std Deviation (35.1-43.9) fl RDW Coeff of Francis (11.6-14.6) % Plt Count (150-450) K/mm3 MPV (6.2-12.0) fl Immature Gran % (Auto) (0.0-0.9) % Neut % (Auto) (47-70) % Lymph % (Auto) (19-41) % [place] % (Auto) (0-10) % Eos % (Auto) (0-5) % Baso % (Auto) (0-1) % Absolute Neuts (auto) (2.0-7.7) X10^3/uL Absolute Lymphs (auto) (0.83-4.51) X10^3/uL Nucleated RBC % (0-5) % Sodium 140 (136-145) mmol/L Potassium 3.8 (3.5-5.1) mmol/L Chloride 108 H (98-107) mmol/L Carbon Dioxide 26.0 (21.0-32.0) mmol/L Anion Gap 6 (5-15) BUN 14 (7-18) mg/dL Creatinine 0.95 (0.55-1.02) mg/dL Estim Creat Clear Calc 74.38 ml/min Est GFR (MDRD) Af Amer 85 (>60) mL/min Est GFR (MDRD) Non-Af 71 (>60) mL/min BUN/Creatinine Ratio 14.7 (10-20) RATIO Glucose 112 H (74-106) mg/dL Calcium 9.2 (8.5-10.1) mg/dL Total Bilirubin 0.40 (0.20-1.00) mg/dL AST 9 L (15-37) U/L ALT 24 (13-56) U/L Alkaline Phosphatase 94 (45-117) U/L Total Protein 7.9 (6.4-8.2) g/dL Albumin 3.9 (3.2-5.0) g/dL Globulin 4.0 (2.2-4.2) g/dL Albumin/Globulin Ratio 1.0 (0.9-2.4) RATIO Lipase 93 (73-393) U/L Serum , Qual NEGATIVE Negative Urine Color Yellow (Yellow) Urine Clarity Clear (Clear) Urine pH 6.0 (5.0 - 8.0) Ur Specific [place] 1.025 (1.002-1.030) Urine Protein Negative (Negative) mg/dl Urine Glucose (UA) Normal (Normal) mg/dl Urine Ketones Negative (Negative) mg/dl Urine Occult Blood Negative (Negative) /ul Urine Nitrite Negative (Negative) Urine Bilirubin Negative (Negative) mg/dL Urine Urobilinogen Normal (Normal) mg/dl Ur Leukocyte Esterase 25 H (Negative) /ul Urine RBC 0 SEEN (0-5) /hpf Urine WBC 0-5 SEEN (0-5) /hpf Ur Squamous Epith Cells 0-5 SEEN (5-10) /hpf Urine Bacteria RARE (None Seen) /hpf Urine Mucus 0 SEEN (<or=2+) /hpf 08/18/20 Range/Units 00:15 WBC 14.5 H (4.4-11.0) K/mm3 RBC 4.75 (4.2-5.4) M/mm3 Hgb 14.4 (12.0-15.0) g/dL Hct 42.5 (37-47) % MCV 89.5 (81-99) fL MCH 30.3 (27.0-32.0) pg MCHC 33.9 (32-36) g/dL RDW Std Deviation 40.8 (35.1-43.9) fl RDW Coeff of Francis 12.4 (11.6-14.6) % Plt Count 291 (150-450) K/mm3 MPV 10.0 (6.2-12.0) fl Immature Gran % (Auto) 0.300 (0.0-0.9) % Neut % (Auto) 84.9 H (47-70) % Lymph % (Auto) 7.0 L (19-41) % [place] % (Auto) 7.1 (0-10) % Eos % (Auto) 0.5 (0-5) % Baso % (Auto) 0.2 (0-1) % Absolute Neuts (auto) 12.3 H (2.0-7.7) X10^3/uL Absolute Lymphs (auto) 1.01 (0.83-4.51) X10^3/uL Nucleated RBC % 0 (0-5) % Sodium (136-145) mmol/L Potassium (3.5-5.1) mmol/L Chloride (98-107) mmol/L Carbon Dioxide (21.0-32.0) mmol/L Anion Gap (5-15) BUN (7-18) mg/dL Creatinine (0.55-1.02) mg/dL Estim Creat Clear Calc ml/min Est GFR (MDRD) Af Amer (>60) mL/min Est GFR (MDRD) Non-Af (>60) mL/min BUN/Creatinine Ratio (10-20) RATIO Glucose (74-106) mg/dL Calcium (8.5-10.1) mg/dL Total Bilirubin (0.20-1.00) mg/dL AST (15-37) U/L ALT (13-56) U/L Alkaline Phosphatase (45-117) U/L Total Protein (6.4-8.2) g/dL Albumin (3.2-5.0) g/dL Globulin (2.2-4.2) g/dL Albumin/Globulin Ratio (0.9-2.4) RATIO Lipase (73-393) U/L Serum , Qual Negative Urine Color (Yellow) Urine Clarity (Clear) Urine pH (5.0 - 8.0) Ur Specific [place] (1.002-1.030) Urine Protein (Negative) mg/dl Urine Glucose (UA) (Normal) mg/dl Urine Ketones (Negative) mg/dl Urine Occult Blood (Negative) /ul Urine Nitrite (Negative) Urine Bilirubin (Negative) mg/dL Urine Urobilinogen (Normal) mg/dl Ur Leukocyte Esterase (Negative) /ul Urine RBC (0-5) /hpf Urine WBC (0-5) /hpf Ur Squamous Epith Cells (5-10) /hpf Urine Bacteria (None Seen) /hpf Urine Mucus (<or=2+) /hpf - Physical Exam Vitals/I&O's: Vital Signs Temp Pulse Resp BP Pulse Ox 99.2 F H 107 H 16 113/75 95 01/19/20 03:04 01/19/20 03:04 01/19/20 03:04 01/19/20 03:04 01/19/20 03:04 Oxygen Delivery Method Room Air Weight: 185 lb 13.595 oz Body Mass Index (BMI) 30.9 Intake and Output for Last 24 Hours 01/17/20 01/18/20 01/19/20 23:59 23:59 23:59 Intake Total 963.535 / 1103.770 0708.17 / 2794.17 650 / 650 Output Total 425 / 625 720 / 730 10 Balance 538.535 / 493.669 7560.17 / 2064.17 640 / 640 General: Alert, Oriented x3, Cooperative HEENT: Atraumatic, PERRLA, EOMI, Normocephalic Neck: Supple Lungs: Clear to auscultation Cardiovascular: Regular rate, Regular Rhythm Abdomen: Bowel Sounds Present, Soft, Non-Distended, Hernia - appropriate Extremities: No edema, Capillary Refill Less than 3 Seconds Neurological: Cranial nerves II-XII grossly intact Psych/Mental Status: Normal Affect, Appropriate Laboratory Results 01/19/20 05:20: WBC 13.2 H, RBC 3.79 L, Hgb 11.4 L, Hct 34.6 L, MCV 91.3, MCH 30.1, MCHC 32.9, RDW Std Deviation 42.1, RDW Coeff of Francis 12.7, Plt Count 245, MPV 9.8, Immature Gran % (Auto) 0.600, Neut % (Auto) 86.3 H, Lymph % (Auto) 5.9 L, [place] % (Auto) 6.8, Eos % (Auto) 0.3, Baso % (Auto) 0.1, Absolute Neuts (auto) 11.4 H, Absolute Lymphs (auto) 0.78 L, Nucleated RBC % 0 Current Medications Acetaminophen (Tylenol) 650 mg PO Q6H PRN PRN PRN Reason: Pain Score 1-03/10 Last Admin: 01/18/20 08:27 Dose: 650 mg Documented by: Hydrocodone Bitart/Acetaminophen ([place] 5mg-325mg) 1 - 2 tablet PO Q6H PRN PRN PRN Reason: Pain Score 1-1010 Last Admin: 01/18/20 17:18 Dose: 1 tablet Documented by: Piperacillin Sod/Tazobactam (Sod 3.375 gm/ Sodium Chloride) 50 mls @ 12.5 mls/hr IV Q8 ROGERS Last Admin: 01/19/20 05:15 Dose: 12.5 mls/hr Documented by: Sodium Chloride () 1,000 mls @ 50 mls/hr IV .Q20H [facility] Last Admin: 01/18/20 20:41 Dose: 50 mls/hr Documented by: Morphine Sulfate () 2 - 4 mg IV Q1H PRN PRN PRN Reason: Pain Score 1-10/10 Ondansetron HCl (Zofran) 4 mg IM X1 PRN PRN Reason: NAUSEA Sodium Chloride () 10 - 40 ml IV UD PRN PRN Reason: SALINE FLUSH Medical Necessity - Tobacco Use Smoking Status: Never smoker Assessment/Plan All Active Problems (Last Reviewed 03/23/18 @ 08:27 by Albina Grigsby) Abdominal pain (Acute) Ovarian cyst (Acute) Acute appendicitis (Acute) Abnormal TSH (Acute) POD#2 s/p diagnostic lap, IVY, RSO, appendectomy - Doing well - WBC trending down - Vital signs stable - Pain controlled - Ambulating and voiding without difficulty - Awaiting flatus - Dispo per general surgery
[2020-01-19 09:55] VITALS: BP 116/73; PULSE 99; RESP 18; TEMP 36.6; O2SAT 95
--- NOTE | 2020-01-19 12:16 | PHA.DC.MC ---
Pharmacy Service has performed discharge medication reconciliation and counseling for this patient. Upon entering room to perform counseling, it was noted patient had already been discharged off the floor, so counseling was not able to be performed at this time. a medication reconciliation was performed prior to counseling patient, no issues noted. Home Medications vitamin#30 30 mg iron-10 mg iron-folic acid 1 mg-omg3 capsule 1 cap PO DAILY cap 03/16/18 Naproxen [Naprosyn] 250 - 500 mg PO Q8H PRN PRN #30 tab 01/17/20 Oxycodone HCl/Acetaminophen [Percocet 5-325] 1 - 2 tab PO Q6H PRN PRN 7 Days #10 tab 01/17/20 Amoxicillin/Potassium Clav [Augmentin 875-125 Tablet] 1 ea PO BID #10 tab 01/19/20
== END 2020-01-19 11:48 | disposition home or self-care (01) | DRG 338 ==
LOC: ED 01-17 06:38 → MS3 01-17 07:04
PROVIDERS: Surgery; Admitting Provider Obstetrics & Gynecology; Emergency Provider Emergency Medicine; Visit Provider Obstetrics & Gynecology
PROC: 0UT54ZZ Resection of Right Fallopian Tube, Percutaneous Endoscopic Approach (ICD-10-PCS; CPT 49320; principal; 2020-01-17 08:45)
DX: K35.32 Acute appendicitis with perforation, localized peritonitis, and gangrene, without abscess (principal); K55.049 Acute infarction of large intestine, extent unspecified; N70.11 Chronic salpingitis; N83.201 Unspecified ovarian cyst, right side; K38.1 Appendicular concretions; N73.6 Female pelvic peritoneal adhesions (postinfective); E07.9 Disorder of thyroid, unspecified; Z79.899 Other long term (current) drug therapy
CPT/HCPCS: 36415; 74176; 76830; 80048; 80053; 81001; 83690; 84703; 85025; 88300; 88304; 88305; 96365; 99251; 99284; J7030; J7120; G0463; J2405

== ENCOUNTER → 2020-02-20 09:33 | Outpatient (CLI) | payer OTHER, SELFPAY ==
[2020-02-02 10:10] VITALS: BMI 30.9
[2020-02-20 11:02] LABS: HIV - WCH Non-Reactive (Nonreactive); Rubella IgG 76.7 IU/mL
[2020-02-20 11:09] LABS: Estradiol 69.9 pg/mL; Follicle Stimulating Hormone 7.8 mIU/mL; Free T3 2.4 pg/mL (2.18-3.98); Luteinizing Hormone 5.1 mIU/mL; Prolactin 12.1 ng/mL; T4 Free Direct 0.94 ng/dL (0.76-1.46); Thyroid Stim Hormone (TSH) 3.37 uIU/mL (0.358-3.74)
[2020-02-22 12:08] LABS: Testosterone, % Free 1.78 % (0.50-2.80); Testosterone, Free 0.46 ng/dL (0.10-0.85); Testosterone, Total 26 ng/dL (8-48)
[2020-02-22 15:19] LABS: V-Zoster IgG (Immunity) 1455 index (Immune >165)
[2020-02-23 05:23] LABS: Rapid Plasmin Reagin (RPR) NONREACTIVE (NONREACTIVE)
== END ==
PROVIDERS: Referring Provider Obstetrics & Gynecology; Visit Provider Obstetrics & Gynecology
DX: N97.9 Female infertility, unspecified (principal)
CPT/HCPCS: 36415; 82627; 82670; 83001; 83002; 84146; 84402; 84403; 84439; 84443; 84481; 86592; 86703; 86762; 86787; 82626

== ENCOUNTER → 2020-04-02 08:26 | Outpatient (CLI) | payer OTHER, SELFPAY ==
[2020-03-07 08:31] VITALS: BMI 30.9
[2020-04-02 09:52] LABS: Progesterone Level 56.44 ng/mL (See Comment)
== END ==
LOC: LAB 08:30
PROVIDERS: Referring Provider Obstetrics & Gynecology; Visit Provider Obstetrics & Gynecology
DX: N97.9 Female infertility, unspecified (principal)
CPT/HCPCS: 36415; 84144

== ENCOUNTER 2020-06-24 09:51 | Emergency (ER) | payer OTHER, SELFPAY ==
[2020-03-07 08:31] VITALS: BMI 30.9
[2020-06-24 09:52] VITALS: BP 146/82; PULSE 116; RESP 15; TEMP 36.3; O2SAT 100; BMI 30.4
--- NOTE | 2020-06-24 10:03 | ED.DCSUM_ITS ---
History of Present Illness Chief Complaint: Vag Bld, Preg Informant: Patient Narrative: 35-year-old female presents with vaginal spotting in early . She tells me she is approximately 6 weeks . The patient states that she is Ab1. Her last she miscarried at approximately 5 and half weeks. She states she is O+. She sees Dr. Burnham for REMOTE CONTROL ASSEMBLER.. She states her symptoms began yesterday morning when she noticed some spotting. She states today she is having light pink discharge. She denies any cramping or pain. No trauma. No sexual intercourse. She has not seen her REMOTE CONTROL ASSEMBLER for this . She did not contact them stating that she did not feel comfortable waiting till tomorrow because she needs to know if she is having a miscarriage or not. She does understand that predicting success of an early is extremely hard. - Past Medical History (1) Ovarian cyst Status: Acute Past Medical History - Allergies and Home Meds Allergies/Adverse Reactions: Allergies Sulfa (Sulfonamide Antibiotics) Allergy (Verified 06/24/20 09:54) Hives Primary Care Physician: Care Physician,No Primary [Primary Care Provider] - Past Medical History: None Surgical History: - - Reviewed - no prior surgeries Lives: Spouse/ Significant Other Smoking Status: Never smoker Drugs: None Review of Systems General: Denies: Chills, Fever, Sweats Eyes: Denies: Visual changes - bilaterally, Diplopia ENT: Denies: Rhinorrhea, Sore throat Cardiovascular: Denies: Chest pain, Palpitations Respiratory: Denies: Dyspnea, Cough, Dyspnea on exertion Gastrointestinal: Denies: Abdominal pain, Nausea, Vomiting, Diarrhea, Melena, Hematochezia Genitourinary: Reports: - - Vaginal bleeding in early . Denies: Dysuria, Hematuria, Frequency Musculoskeletal: Denies: Back pain, Extremity Pain Skin: Denies: Rash, Wounds Neurological: Denies: Headache, Weakness, Numbness Physical Exam Vital Signs/Narrative: Vital Signs Temp Pulse Resp BP Pulse Ox 06/24/20 09:52 97.3 F L 116 H 15 146/82 H 100 Inital Vital Signs reviewed: Yes General: Well nourished, Well developed, No Acute Distress Head: Normocephalic, Atraumatic Eyes: Perrl, EOMI ENT: Moist mucous membranes, No rhinorrhea Neck: Supple, Nontender Cardiovascular: Regular rate, Regular rhythm, No murmurs Respiratory: No distress, CTA bilaterally, Chest nontender Abdomen: Soft, Nontender, Nondistended, Normal bowel sounds Back: Nontender, Normal Inspection Extremities: Nontender, No edema Skin: Normal color, No rash Neurological: Alert, Oriented x3, Cranial nerves II-XII grossly intact, Normal Strength, Normal Sensation Psychological: Normal affect, Normal Mood Diagnostic/Tx/Re-eval Clinical Impression(s) from Imaging Studies Obstetrics Ultrasound 06/24/20 11:05 IMPRESSION: Small cystic area within the lower uterine segment measuring 3 x 3 mm of unclear definitive etiology. No evidence of definitive gestational sac, recommend correlation with beta hCG and follow-up imaging given early LMP dates of 5 weeks and 6 days with gynecologic consultation. Electronically Signed: Rashel DO Yang at 12:22 EST , Service support , Laboratory Last Values Hgb 13.8 g/dL (12.0-15.0) 06/24/20 10:15 Hct 40.5 % (37-47) 06/24/20 10:15 HCG, Quant 3416 mIU/mL (1-3) H 06/24/20 10:15 - Medical Decision Making Quantitative hCG is 3416. H&H stable. She is O+ from blood bank testing 2017. Pelvic ultrasound does not show definitive . Case was discussed with her REMOTE CONTROL ASSEMBLER. Patient will have a repeat quantitative hCG drawn in 48 hours and will follow up in the office after that. She is welcome to return to emergency if she has any concerns or speak on the phone with the on-call fitter hand. ED Disposition - Plan for ED Patient: Disposition: Home or Assisted Living Diagnosis: Threatened miscarriage in early Instructions: ED Possible Miscarriage ... Referrals: Yodit Burnham MD [STAFF PHYSICIAN] - (on Thursday or .)
[2020-06-24 10:23] LABS: Hematocrit 40.5 % (37-47); Hemoglobin 13.8 g/dL (12.0-15.0)
[2020-06-24 10:54] LABS: hCG Titer Quant., Serum 3416 mIU/mL (1-3)
--- NOTE | 2020-06-24 11:05 | US_ITS ---
STUDY: FIRST TRIMESTER OBSTETRICAL ULTRASOUND REASON FOR EXAM: Female, 35 years old SPOTTING W/ - HCG 3416. LMP 05/14/2020. HX OF RT SALPINGOOPHORECTOMY IN DECEMBER 2019 LMP: 05/14/2020 TECHNIQUE: Transvaginal TECHNICAL QUALITY: Adequate. PRIOR ULTRASOUND: None. FINDINGS: There is no demonstrated intrauterine gestational sac.. There is no demonstrated yolk sac. The placenta is non-visualized. There is no demonstrated embryo ( pole). The estimated gestation age (EGA) by LMP is 5 weeks, 6 days. The estimated date of delivery (LITZY) by LMP is 02/18/2021. The uterus measures 8.1 x 5.0 x 4.3 cm. There is no demonstrated uterine fibroid. The cervix is closed. There is a small cystic region within the lower uterine segment measuring 3 x 3 mm. Right ovary is removed. The left ovary measures 1.9 x 1.7 x 1.4 cm.. Hypoechoic cyst is noted measuring 9 x 12.9 mm. There is no visualized left adnexal mass or complex lesion. There is no fluid in the cul de sac. US/Transvaginal w/Preg US IMPRESSION: Small cystic area within the lower uterine segment measuring 3 x 3 mm of unclear definitive etiology. No evidence of definitive gestational sac, recommend correlation with beta hCG and follow-up imaging given early LMP dates of 5 weeks and 6 days with gynecologic consultation. Electronically Signed: Rashel Soria DO at 12:22 EST , Service support ,
[2020-06-24 13:15] VITALS: PULSE 94; RESP 17; O2SAT 100
== END 2020-06-24 13:16 | disposition home or self-care (01) ==
PROVIDERS: Emergency Provider Emergency Medicine
DX: O20.0 Threatened abortion (principal); O34.81 Maternal care for other abnormalities of pelvic organs, first trimester; N83.209 Unspecified ovarian cyst, unspecified side; Z3A.01 Less than 8 weeks gestation of pregnancy
CPT/HCPCS: 76817; 84702; 85014; 85018; 99283; A4216

== ENCOUNTER → 2020-06-26 08:33 | Outpatient (CLI) | payer OTHER, SELFPAY ==
[2020-06-26 08:08] VITALS: BMI 31.4
[2020-06-26 09:54] LABS: hCG Titer Quant., Serum 4269 mIU/mL (1-3)
[2020-06-29 20:07] LABS: Dilute Prothrombin Time (dPT) 31.5 sec (0.0-55.0); Dilute Russell Viper Venom 32.7 sec (0.0-47.0); PTT-LA 35.1 sec (0.0-51.9); Thrombin Time 15.5 sec (0.0-23.0); dPT Confirm Ratio 1.27 Ratio (0.00-1.40)
[2020-06-29 20:37] LABS: Anti-Cardiolipin Ab, IgA, Qn < 9 APL U/mL (0-11); Anti-Cardiolipin Ab, IgG, Qn < 9 GPL U/mL (0-14); Anti-Cardiolipin Ab, IgM, Qn < 9 MPL U/mL (0-12); Beta-2-Glycoprotein I IgA <9 (0-25); Beta-2-Glycoprotein I IgG <9 (0-20); Beta-2-Glycoprotein I IgM <9 (0-32); Interpretation Comment: (.)
== END ==
PROVIDERS: Obstetrics & Gynecology; Referring Provider Emergency Medicine; Visit Provider Emergency Medicine
DX: O20.0 Threatened abortion (principal); Z3A.00 Weeks of gestation of pregnancy not specified; N96 Recurrent pregnancy loss
CPT/HCPCS: 36415; 84702; 86146; 86147; 86850; 86900; 86901

== ENCOUNTER → 2020-06-28 08:21 | Outpatient (CLI) | payer OTHER, SELFPAY ==
[2020-06-26 08:08] VITALS: BMI 31.4
[2020-06-28 11:18] LABS: hCG Titer Quant., Serum 6234 mIU/mL (1-3)
== END ==
PROVIDERS: Referring Provider Obstetrics & Gynecology; Visit Provider Obstetrics & Gynecology
DX: O20.0 Threatened abortion (principal); Z3A.00 Weeks of gestation of pregnancy not specified
CPT/HCPCS: 36415; 84702

== ENCOUNTER → 2020-06-28 18:12 | Outpatient (CLI) | payer OTHER, SELFPAY ==
[2020-06-28 14:23] VITALS: BMI 31.5
--- NOTE | 2020-06-28 18:14 | US_ITS ---
We are attempting to reach an attending provider to discuss findings. An addendum with communication details will be sent when the communication is complete. STUDY: FIRST TRIMESTER OBSTETRICAL ULTRASOUND REASON FOR EXAM: Female, 35 years old of unknown location. Beta hCG of 6234. LMP: 05/14/2020. TECHNIQUE: Transvaginal TECHNICAL QUALITY: Adequate. PRIOR ULTRASOUND: 06/24/2020. FINDINGS: There is no demonstrated intrauterine gestational sac. The estimated gestation age (EGA) by LMP is 6 weeks, 3 days. The estimated date of delivery (LITZY) by LMP is 02/18/2021. The uterus measures 8.3 x 4.9 x 4.3 cm. The endometrium measures 11 mm in thickness and is hyperechoic. There is no demonstrated uterine fibroid. The cervix is closed. There is a anechoic area in the lower uterine segment measuring 4 mm. The right ovary not visualized. Patient relates history of right oophorectomy.. There is no visualized right adnexal mass or complex lesion. The left ovary measures 4.8 x 3.8 x 2.9. There is a 2.0 x 2.1 x 1.9 cm dominant follicle with other smaller follicles present. There is a fluid density mass with minimal internal echoes arising from or adjacent to the left ovary measuring approximately 2 cm in diameter. This has a thickened rim which demonstrates ringlike peripheral enhancement on DOPPLER imaging. Similar vascularity is also seen on another ovarian cyst. There is no fluid in the cul de sac. US/Transvaginal w/Preg US IMPRESSION: 1. No evidence of intrauterine . 2. Absence of the right ovary. There is no right adnexal mass. 3. Irregular ovary. The findings suggest a possible left adnexal ectopic with adjacent corpus luteum cyst in the left ovary. Electronically Signed: Pradeep Armstrong DO at 19:19 EST Tel [phone], Service support ,
== END ==
PROVIDERS: Visit Provider Obstetrics & Gynecology
DX: O36.80X0 Pregnancy with inconclusive fetal viability, not applicable or unspecified (principal); Z3A.00 Weeks of gestation of pregnancy not specified
CPT/HCPCS: 76817

== ENCOUNTER 2020-06-28 20:08 | Emergency (ER) | payer OTHER, SELFPAY ==
[2020-06-28 14:23] VITALS: BMI 31.5
[2020-06-28 20:09] VITALS: BP 131/82; PULSE 105; RESP 16; TEMP 36.3; O2SAT 98; BMI 31.4
[2020-06-28 21:27] LABS: Absolute Lymphocyte Count 1.46 X10^3/uL (0.83-4.51); Absolute Neutrophil Count 7.5 X10^3/uL (2.0-7.7); Basophil# 0.04 X10^3/uL; Basophil% 0.4 % (0-1); Eosinophil# 0.13 X10^3/uL; Eosinophils% 1.3 % (0-5); Hematocrit 36.4 % (37-47); Hemoglobin 12.6 g/dL (12.0-15.0); Lymphocyte # 1.46 X10^3/ul (4.0); Lymphocyte % 14.4 % (19-41); Mean Corp Hgb Conc 34.6 g/dL (32-36); Mean Corpuscular Hgb 30.2 pg (27.0-32.0); Mean Corpuscular Volume 87.3 fL (81-99); Mean Platelet Vol. 9.8 fl (6.2-12.0); Monocyte# 0.94 X10^3/uL; Monocyte% 9.3 % (0-10); NRBC Flagged by Analyzer 0 % (0-5); Neutrophil # 7.53 X10^3/uL (2.7-7.7); Neutrophil % 74.2 % (47-70); Platelet Count 277 K/mm3 (150-450); RBC Distribution Width CV 12.1 % (11.6-14.6); RBC Distribution Width SD 39.2 fl (35.1-43.9); Red Blood Count 4.17 M/mm3 (4.2-5.4); White Blood Count 10.1 K/mm3 (4.4-11.0)
--- NOTE | 2020-06-28 21:29 | ED.DCSUM_ITS ---
- ER Visit Summary Date of Service: 06/28/20 Chief Complaint: Ectopic History of Present Illness: The patient is a 35 F who presents with an ectopic was diagnosed earlier today. Patient saw her INTERNET MARKETING EXECUTIVE who diagnosed her with an ectopic . Patient was referred to the emergency department for methotrexate injection. Patient denies any pain. Patient does admit to some vaginal spotting. Patient denies any discharge. Patient denies any dysuria or hematuria. Patient states her last menstrual period was 05/14/2020. Patient states it was a normal period for her. Patient denies any other symptoms. Physical Examination: Vital signs are stable. Patient is afebrile. Patient is in no acute distress. Oral mucosa is pink and moist. Neck is supple. Trachea is midline. There is no JVD noted. Heart was regular rate and rhythm. Lungs are clear and equal bilaterally. Abdomen is soft. Bowel sounds are normal. There is no tenderness. There is no rebound or guarding noted. Skin is warm dry. Cranial nerves II through XII are intact. There are no focal motor or sensory deficits noted. Extremities are intact. There is no calf tenderness or edema. Test Results: CBC and comprehensive metabolic profile were obtained and were within normal limits. Emergency Department Course and Treatment: She was given an injection of methotrexate here by Dr. Burnham. Patient was instructed to follow-up with Dr. Burnham as scheduled. Patient was instructed return if worse in any way. Patient understood and was agreeable with the plan. All questions were answered. Disposition: Discharge home Impression: Ectopic This note was generated with [employer] dictation software. It may contain incorrect words, spelling, and punctuation that were not noted in review of the chart prior to signing ED Disposition - Plan for ED Patient: Disposition: Home or Assisted Living Diagnosis: Ectopic Instructions: ED Methotrexate for Ectopic Referrals: Yodit Burnham MD [STAFF PHYSICIAN] - Keep Leidy appointment
[2020-06-28 21:43] LABS: ALB/GLOB Ratio 0.8 RATIO (0.9-2.4); AST(SGOT) 20 U/L (15-37); Alanine Aminotransfer ALT/SGPT 69 U/L (13-56); Albumin, Serum 3.5 g/dL (3.2-5.0); Alkaline Phosphatase 86 U/L (45-117); Anion Gap 6 (5-15); BUN 14 mg/dL (7-18); BUN/Creat Ratio 17.9 RATIO (10-20); Calcium,Total 9.4 mg/dL (8.5-10.1); Chloride 109 mmol/L (98-107); Creatinine, Serum 0.78 mg/dL (0.55-1.02); EST Glomerular Filtration Rate 88 mL/min (>60); Est Glom Filt Rate - Afr Amer 107 mL/min (>60); Estimated Creatinine Clearance 89.72 ml/min; Globulin 4.2 g/dL (2.2-4.2); Glucose 105 mg/dL (74-106); Potassium 3.6 mmol/L (3.5-5.1); Protein, Total 7.7 g/dL (6.4-8.2); Sodium Level 139 mmol/L (136-145)
[2020-06-28 22:39] VITALS: PULSE 95
== END 2020-06-28 22:52 | disposition home or self-care (01) ==
PROVIDERS: Emergency Provider Emergency Medicine
DX: O00.90 Unspecified ectopic pregnancy without intrauterine pregnancy (principal); Z3A.00 Weeks of gestation of pregnancy not specified
CPT/HCPCS: 80053; 85025; 96372; 99282; J9250

== ENCOUNTER → 2020-07-01 17:56 | Outpatient (CLI) | payer OTHER, SELFPAY ==
[2020-06-28 20:09] VITALS: BMI 31.4
[2020-07-01 19:43] LABS: hCG Titer Quant., Serum 11847 mIU/mL (1-3)
== END ==
LOC: LAB 17:58
PROVIDERS: Visit Provider Obstetrics & Gynecology
DX: O00.90 Unspecified ectopic pregnancy without intrauterine pregnancy (principal); Z3A.00 Weeks of gestation of pregnancy not specified
CPT/HCPCS: 36415; 84702

== ENCOUNTER → 2020-07-04 10:39 | Outpatient (CLI) | payer OTHER, SELFPAY ==
[2020-06-28 20:09] VITALS: BMI 31.4
[2020-07-04 11:50] LABS: hCG Titer Quant., Serum 11017 mIU/mL (1-3)
== END ==
PROVIDERS: Referring Provider Obstetrics & Gynecology; Visit Provider Obstetrics & Gynecology
DX: O00.90 Unspecified ectopic pregnancy without intrauterine pregnancy (principal); Z3A.00 Weeks of gestation of pregnancy not specified
CPT/HCPCS: 36415; 84702

== ENCOUNTER 2020-07-04 14:33 | Emergency (ER) | payer OTHER, SELFPAY ==
[2020-07-04 14:36] VITALS: BP 122/75; PULSE 87; RESP 17; TEMP 36.7; O2SAT 100; BMI 31.8
[2020-07-04 15:43] LABS: Absolute Lymphocyte Count 1.28 X10^3/uL (0.83-4.51); Absolute Neutrophil Count 6.3 X10^3/uL (2.0-7.7); Basophil# 0.02 X10^3/uL; Basophil% 0.2 % (0-1); Eosinophil# 0.04 X10^3/uL; Eosinophils% 0.5 % (0-5); Hematocrit 34.1 % (37-47); Hemoglobin 11.6 g/dL (12.0-15.0); Lymphocyte # 1.28 X10^3/ul (4.0); Lymphocyte % 15.9 % (19-41); Mean Corpuscular Hgb 29.8 pg (27.0-32.0); Mean Corpuscular Volume 87.7 fL (81-99); Mean Platelet Vol. 9.8 fl (6.2-12.0); Monocyte# 0.41 X10^3/uL; Monocyte% 5.1 % (0-10); NRBC Flagged by Analyzer 0 % (0-5); Neutrophil # 6.26 X10^3/uL (2.7-7.7); Neutrophil % 78.1 % (47-70); Platelet Count 247 K/mm3 (150-450); RBC Distribution Width CV 11.9 % (11.6-14.6); RBC Distribution Width SD 38.4 fl (35.1-43.9); Red Blood Count 3.89 M/mm3 (4.2-5.4)
--- NOTE | 2020-07-04 16:04 | ED.VISSUMM ---
- ER Visit Summary Date of Service: 07/04/20 Chief Complaint: Needs methotrexate History of Present Illness: The patient is a 35 F presenting for a methotrexate shot. Patient was diagnosed with an ectopic last . At that time she was seen in the ED and Dr. Burnham administered methotrexate. She continues to be asymptomatic. She has no abdominal pain, vaginal bleeding, syncope. Her quant levels have not been declining as expected. She was sent to the ED for another dose of methotrexate. Physical Examination: Vitals are stable. Patient is afebrile. Alert no acute distress. HEENT exam is unremarkable. Neck is supple. Lungs are clear and equal bilaterally. Heart is regular rate and rhythm. Abdomen is soft nontender nondistended. No guarding or rebound Extremities are unremarkable. Skin is warm and dry. No focal neurologic deficit. Remainder of exam is unremarkable. Emergency Department Course and Treatment: CBC, CMP unremarkable. Methotrexate was ordered and will be administered by Dr. Burnham. Disposition: Discharge Impression: Ectopic This note was generated with [employer] dictation software. It may contain incorrect words, spelling, and punctuation that were not noted in review of the chart prior to signing ED Disposition - Plan for ED Patient: Referrals: Care Physician,No Primary [Primary Care Provider] -
[2020-07-04 16:11] LABS: ALB/GLOB Ratio 0.8 RATIO (0.9-2.4); AST(SGOT) 17 U/L (15-37); Alanine Aminotransfer ALT/SGPT 44 U/L (13-56); Albumin, Serum 3.2 g/dL (3.2-5.0); Alkaline Phosphatase 90 U/L (45-117); Anion Gap 6 (5-15); BUN 9 mg/dL (7-18); BUN/Creat Ratio 12.8 RATIO (10-20); Calcium,Total 9.1 mg/dL (8.5-10.1); Chloride 107 mmol/L (98-107); EST Glomerular Filtration Rate 100 mL/min (>60); Est Glom Filt Rate - Afr Amer 121 mL/min (>60); Estimated Creatinine Clearance 99.98 ml/min; Glucose 81 mg/dL (74-106); Potassium 3.9 mmol/L (3.5-5.1); Protein, Total 7.2 g/dL (6.4-8.2); Sodium Level 137 mmol/L (136-145)
--- NOTE | 2020-07-04 16:18 | ED.DEP ---
ED Disposition - Plan for ED Patient: Instructions: Methotrexate, Ectopic Referrals: Nidhi Burnham [Registered Nurse] -
== END 2020-07-04 17:26 | disposition home or self-care (01) ==
LOC: ED 15:02
PROVIDERS: Emergency Provider Emergency Medicine
DX: O00.90 Unspecified ectopic pregnancy without intrauterine pregnancy (principal)
CPT/HCPCS: 80053; 85025; 96372; 99282; A4216; J9250

== ENCOUNTER 2020-07-07 11:08 | Day surgery (SDC) | payer OTHER, SELFPAY ==
[2020-07-07] VITALS (11 sets, daily range): BP systolic 94–119; BP diastolic 62–78; PULSE 78–104; RESP 14–18; TEMP 35.3–36.9; O2SAT 95–100; BMI 32.0
--- NOTE | 2020-07-07 11:35 | US_ITS ---
STUDY: FIRST TRIMESTER OBSTETRICAL ULTRASOUND REASON FOR EXAM: Female, 35 years old ectopic , METHOTREXATE therapy, left lower quadrant pain LMP: 05/14/2020 TECHNIQUE: Transvaginal TECHNICAL QUALITY: Limited due to patient pain. PRIOR ULTRASOUND: 06/28/2020 FINDINGS: There is no demonstrated intrauterine gestational sac. There is mild ascites identified including hepatorenal recess. The uterus measures 8.1 x 5.3 x 4.4. Diffuse thickening of the endometrial complex measures up to 20 mm. The cervix is closed. The right ovary is not definitively seen. Complex solid and cystic structure of the left adnexa with free upright cystic structures measuring 23 x 25 x 23 mm, 16 x 17 x 14 mm and 18 x 14 x 14 mm. There is increased, peripheral vascularity around the cystic structures US/Transvaginal w/Preg US IMPRESSION: 1. Persistent complex left adnexa with suspected ectopic . Similar increased vascularity of the left adnexa. Free fluid/ascites in the hepatorenal recess (not previously documented) and pelvis. Electronically Signed: Patrick Camacho MD ([place]) at 16:37 EST , Service support ,
--- NOTE | 2020-07-07 11:36 | ED.DCSUM_ITS ---
History of Present Illness Chief Complaint: Abd Pain Informant: Patient Narrative: 35-year-old female presenting with abdominal pain proximal to midline of her lower abdomen. Patient diagnosed with ectopic on the right 06/28/2019 and sent to the ED for methotrexate shot. She at that time is not had any pain or vaginal symptoms. Patient states that she returned on 07/04/2019 for repeat methotrexate shot as her hCG levels were not declining as much as it would have liked. Patient states today is the first time she has had pain. She denies vaginal bleeding, discharge, urinary symptoms, change in bowel habits, fever, chills. Past Medical History - Allergies and Home Meds Allergies/Adverse Reactions: Allergies Sulfa (Sulfonamide Antibiotics) Allergy (Verified 07/07/20 11:09) Sravan Primary Care Physician: Care Physician,No Primary [Primary Care Provider] - Prior records reviewed: Yes Past Medical History: - - Ectopic , ovarian cyst Surgical History: appendectomy Lives: Spouse/ Significant Other Smoking Status: Never smoker Alcohol: None Drugs: None Review of Systems General: Denies: Chills, Fever, Sweats Eyes: Denies: Visual changes - bilaterally, Diplopia ENT: Denies: Rhinorrhea, Sore throat Cardiovascular: Denies: Chest pain, Palpitations Respiratory: Denies: Dyspnea, Cough, Dyspnea on exertion Gastrointestinal: Reports: Abdominal pain Genitourinary: Denies: Dysuria, Hematuria Musculoskeletal: Denies: Myalgias, Arthralgias Skin: Denies: Rash, Abscess Neurological: Denies: Headache, Parasthesia Psych: Denies: Depression, Anxiety Physical Exam Vital Signs/Narrative: Vital Signs Temp Pulse Resp BP Pulse Ox 07/07/20 11:09 95.6 F L 95 18 119/75 100 Inital Vital Signs reviewed: Yes General: Well nourished, No Acute Distress Head: Normocephalic, Atraumatic Eyes: Perrl, EOMI ENT: Moist mucous membranes, No rhinorrhea Cardiovascular: Regular rate, Regular rhythm Abdomen: Soft, Nondistended, Tender - Tenderness to palpation in the lower portion midline pelvis. Skin: Normal color, No rash Neurological: Alert, Oriented x3, Cranial nerves II-XII grossly intact Psychological: Normal affect, Normal Mood Diagnostic/Tx/Re-eval Clinical Impression(s) from Imaging Studies Obstetrics Ultrasound 07/07/20 11:35 IMPRESSION: 1. Persistent complex left adnexa with suspected ectopic . Similar increased vascularity of the left adnexa. Free fluid/ascites in the hepatorenal recess (not previously documented) and pelvis. Electronically Signed: Patrick Camacho MD (Brooks) at 16:37 EST , Service support , Laboratory Data 07/07/20 07/07/20 07/07/20 12:00 12:00 12:00 WBC 8.2 RBC 3.84 L Hgb 11.4 L Hct 33.5 L MCV 87.2 MCH 29.7 MCHC 34.0 RDW Std Deviation 38.2 RDW Coeff of Francis 12.0 Plt Count 247 MPV 9.5 Immature Gran % (Auto) 0.500 Neut % (Auto) 81.1 H Lymph % (Auto) 11.5 L Orange % (Auto) 5.6 Eos % (Auto) 0.9 Baso % (Auto) 0.4 Absolute Neuts (auto) 6.7 Absolute Lymphs (auto) 0.94 Nucleated RBC % 0 Sodium 136 Potassium 4.0 Chloride 107 Carbon Dioxide 25.0 Anion Gap 4 L BUN 8 Creatinine 0.76 Estim Creat Clear Calc 92.08 Est GFR (MDRD) Af Amer 111 Est GFR (MDRD) Non-Af 92 BUN/Creatinine Ratio 10.6 Glucose 84 Calcium 8.7 HCG, Quant 9779 H - Medical Decision Making Patient presents with abdominal pain and known ectopic was diagnosed on 06/28/2019. She has had 2 doses of methotrexate in the ED. Today she states is the first day she is had pain. CBC shows stable hemoglobin which has been unchanged. She has no leukocytosis. Renal function and electrolytes are normal. Review of her serum quant hCGs shows that she was initially about 4000. This had gone up to 11,847. Today it is 9779. Patient initially did not want anything for pain but after being transported over to ultrasound she was having pain perceiving Ultram sound that was so severe she could not finish. She came back and was given Dilaudid and Zofran. Her blood pressure did drop to 97/47 and she was given IV fluids and transported back over to ultrasound. Patient's ultrasound shows persistent ectopic . Patient was discussed with Dr. 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 He recommended that she take her to the OR for hCGs are not dropping significantly enough. Patient was informed of this. Patient will be admitted in stable condition. Impression: 1. Persistent ectopic ED Disposition - Plan for ED Patient: Disposition: Acute Care Hospital [facility] Referrals: Care Physician,No Primary [Primary Care Provider] -
[2020-07-07 12:11] LABS: Absolute Lymphocyte Count 0.94 X10^3/uL (0.83-4.51); Absolute Neutrophil Count 6.7 X10^3/uL (2.0-7.7); Basophil# 0.03 X10^3/uL; Basophil% 0.4 % (0-1); Eosinophil# 0.07 X10^3/uL; Eosinophils% 0.9 % (0-5); Hematocrit 33.5 % (37-47); Hemoglobin 11.4 g/dL (12.0-15.0); Lymphocyte # 0.94 X10^3/ul (4.0); Lymphocyte % 11.5 % (19-41); Mean Corpuscular Hgb 29.7 pg (27.0-32.0); Mean Corpuscular Volume 87.2 fL (81-99); Mean Platelet Vol. 9.5 fl (6.2-12.0); Monocyte# 0.46 X10^3/uL; Monocyte% 5.6 % (0-10); NRBC Flagged by Analyzer 0 % (0-5); Neutrophil # 6.65 X10^3/uL (2.7-7.7); Neutrophil % 81.1 % (47-70); Platelet Count 247 K/mm3 (150-450); RBC Distribution Width SD 38.2 fl (35.1-43.9); Red Blood Count 3.84 M/mm3 (4.2-5.4); White Blood Count 8.2 K/mm3 (4.4-11.0)
[2020-07-07 12:22] LABS: Anion Gap 4 (5-15); BUN 8 mg/dL (7-18); BUN/Creat Ratio 10.6 RATIO (10-20); Calcium,Total 8.7 mg/dL (8.5-10.1); Chloride 107 mmol/L (98-107); Creatinine, Serum 0.76 mg/dL (0.55-1.02); EST Glomerular Filtration Rate 92 mL/min (>60); Est Glom Filt Rate - Afr Amer 111 mL/min (>60); Estimated Creatinine Clearance 92.08 ml/min; Glucose 84 mg/dL (74-106); Sodium Level 136 mmol/L (136-145)
[2020-07-07 13:06] LABS: hCG Titer Quant., Serum 9779 mIU/mL (1-3)
--- NOTE | 2020-07-07 13:51 | ED.RN ---
ULTRASOUND CALLS STATING THAT PATIENT IS IN TOO MUCH PAIN TO CONTINUE THE EXAM, BROUGHT BACK TO ED, DR. SOLOMON MADE AWARE, AWAITING ADDITIONAL ORDERS.
[2020-07-07] MEDS: HYDROmorphone 0.5 MG/0.5 ML SYRINGE IV (14:19)
[2020-07-07] MEDS: 0.9% Normal Saline 1,000 ML 999 ML IV (14:28)
[2020-07-07] MEDS: Ondansetron 4 MG/2 ML Vial IV (14:28)
--- NOTE | 2020-07-07 17:57 | PCM.HP.STD ---
Problem List (1) Ectopic Status: Acute History of Present Illness Date of Admission: 07/07/20 The patient is a 35 year old F presents with persistent ectopic . she has received methotrexate twice and started to have pain in the last day that is increasing, and although the quant is decreasing ultrasound is suspicious for rupture. Past Medical History Medical History: Medical History (Last Reviewed 06/28/20 @ 14:23 by Ayleen Strickland) Thyroid disorder E07.9 Abdominal pain (Resolved) R10.9 Acute appendicitis (Resolved) K35.80 Ovarian cyst (Resolved) N83.209 Abnormal TSH (Inactive) R94.6 initial t4 normal, recommend repeat in 2 months Allergies Sulfa (Sulfonamide Antibiotics) Allergy (Verified 07/07/20 11:09) Hives Home Medications: Ambulatory Orders Medication Instructions Recorded NK 07/07/20 Surgical History: Surgical History (Last Reviewed 06/28/20 @ 14:23 by Ayleen Strickland) History of appendectomy Onset Date: ~01/17/20 Z90.49 History of salpingoophorectomy Z90.79, Z90.721 01/17/2020 right side back cystectomy Surgical History: 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 Denies: Diarrhea, Vomiting Genitourinary: Denies: Dysuria, Hematuria Musculoskeletal: Denies: Joint Pain, Muscle pain Skin: Denies: Lesions, Rash Neurological: Denies: Blurred vision, Focal weakness, Headaches Psychiatric: Denies: Anxiety, Depression Endocrine: Denies: Heat/ Cold Intolerance Hematologic/ Lymphatic: Denies: Easy Bruising, Easy Bleeding VTE Information - Inpt Only VTE Present on Admission: No - Physical Exam Vitals/I&O's: Vital Signs Temp Pulse Resp BP Pulse Ox 98.4 F 100 14 107/65 100 07/07/20 17:52 07/07/20 17:52 07/07/20 17:52 07/07/20 17:52 07/07/20 17:52 Oxygen Delivery Method Room Air Weight: 192 lb 3.889 oz Body Mass Index (BMI) 32.0 Intake and Output for Last 24 Hours 07/05/20 07/06/20 07/07/20 23:59 23:59 23:59 Intake Total 1000 / 1000 Balance 1000 / 1000 General: Alert, Oriented x3 HEENT: Atraumatic, Normocephalic Oral: Moist Mucosa Neck: Supple, Trachea Midline, Thyroid Normal Size and Texture Lungs: Normal air movement Cardiovascular: Regular rate, Regular Rhythm, Normal S1, Normal S2 Abdomen: Soft, Non-Distended, Rebound Tenderness, Tender Extremities: No edema Neurological: Neuro grossly intact Microbiology Past 72 Hours 07/07/20 17:10 Mucosa - Nose SARS-CoV-2 Antigen (Rapid) - Final Laboratory Results 07/07/20 12:00: WBC 8.2, RBC 3.84 L, Hgb 11.4 L, Hct 33.5 L, MCV 87.2, MCH 29.7, MCHC 34.0, RDW Std Deviation 38.2, RDW Coeff of Francis 12.0, Plt Count 247, MPV 9.5, Immature Gran % (Auto) 0.500, Neut % (Auto) 81.1 H, Lymph % (Auto) 11.5 L, Schleicher % (Auto) 5.6, Eos % (Auto) 0.9, Baso % (Auto) 0.4, Absolute Neuts (auto) 6.7, Absolute Lymphs (auto) 0.94, Nucleated RBC % 0 07/07/20 12:00: HCG, Quant 9779 H 07/07/20 12:00: Sodium 136, Potassium 4.0, Chloride 107, Carbon Dioxide 25.0, Anion Gap 4 L, BUN 8, Creatinine 0.76, Estim Creat Clear Calc 92.08, Est GFR (MDRD) Af Amer 111, Est GFR (MDRD) Non-Af 92, BUN/Creatinine Ratio 10.6, Glucose 84, Calcium 8.7 07/07/20 17:06: Blood Type Pending, Antibody Screen Pending Assessment/Plan All Active Problems (Last Reviewed 06/28/20 @ 14:23 by Ayleen Strickland) Ectopic (Acute) History of recurrent miscarriages (Acute) Threatened (Acute) Abdominal pain (Resolved) Acute appendicitis (Resolved) Ovarian cyst (Resolved) 35 yo with ruptured ectopic recommend laparosocpic evaluation- possible salpingostomy/salpingectomy. After discussing the patient's diagnosis and treatment plan options, patient wishes to proceed with surgical management. I have discussed with the patient the risks, benefits, and alternatives of the procedure which include but are not limited to risks of anesthesia, bleeding, infection, possible damage to bowel, bladder, or surrounding vasculature which could lead to additional surgery to evaluate any complications. Patient agrees to procedure and wishes to proceed. Office Visits / Consults: [id number] OV L4 Est - evaluation in ER and take directly to surgery OP
--- NOTE | 2020-07-07 18:00 | FAL_PTH ---
PATIENT: EMILE PARKER LOC: [facility] [place] U#:[id number] AGE/SX: 35/F ROOM: RE07/07/[address]: Dr. Magaly Lloyd MD : 1985 BED: DIS: 07/07/2020 SPEC #: [id number] RECD: 07/09/20 07:02 STATUS: SHUKRI EMELINA #: [id number] ERVIN: 07/07/20 18:[address]: Magaly Lloyd DEPT: SURGICAL PATHOLOGY RECD BY: Ruthann Pastor ENTERED: 07/09/20 09:58 SP TYPE: ECTOPIC OTHR DR: No Primary Care Phys Tissues: ECTOPIC PREG Procedures: Surgery Specimen Level IV HEADER OPERATION: Laparoscopic removal ectopic , salpingectomy PRE-OP DIAGNOSIS: Left ectopic TISSUE SUBMITTED: Left fallopian tube and ectopic MICROSCOPIC DIAGNOSIS Left fallopian tube and ectopic : Fallopian tube and blood clots with decidua and immature chorionic villi (ectopic ). SJ:linda 07/10/2020 MICROSCOPIC DESCRIPTION Slides are reviewed. GROSS DESCRIPTION Received in fixative is one container labeled with the patient's name and designated left fallopian tube and ectopic . The specimen consists of a portion of fallopian tube measuring 3.5 cm in length and 2 cm in diameter. The fimbrial end is not identified. Sections reveal the lumen is filled with hemorrhagic material. Also present in the container are multiple fragments of blood clot measuring in aggregate 5 x 4 x 2 cm. No obvious tissue is identified. Dietary Manager sections are submitted in four cassettes as follows: 1 & 2 - fallopian tube, 3 & 4 - blood clots. / ABIMBOLA:linda 07/09/20 TC:5 CPT: 79086
--- NOTE | 2020-07-07 18:10 | PCM.OPRPT ---
Problem List (1) Ectopic Status: Acute Report of Operation Date of Procedure: 07/07/20 Pre-Operative Diagnosis: ruptured ectopic Post-Operative Diagnosis: same left tube ruptured ectopic Surgery/Procedure Performed:: laparoscopic left salpingectomy Description of Surgical Findings:: left ectopic severe scar tissue gang mower operator: Angelina Case Type of Anesthesia:: General Special Medications: none Specimen's removed: ectopic Drains: valenzuela Estimated Blood Loss (mL): 400 Fluids Replaced: crystalloid Description of Procedure: Patient was taken in the operating room and was placed under general anesthesia was prepped and draped in normal sterile fashion in the dorsal lithotomy position. Bladder was drained of clear urine and SCDs were on preoperatively. Uterus was sounded and a uterine manipulator was placed after dilating. Attention was then paid to the abdominal portion of the procedure and the umbilicus was elevated with towel clamps and injected with Marcaine and after a 5 mm incision was made and the Veress needle was entered into the abdomen confirmed to be intra-abdominal with a low opening pressure of less than 5 mmHg. Abdomen was insufflated with CO2 gas and a 5 mm optical trocar was placed under direct visualization. A left lower quadrant 5 mm port and a 5 mm port in the right lower quadrant were placed under direct visualization. Filmy scar tissue was seen in the right lower quadrant in the paracolic gutter as well as omental to anterior abdominal wall adhesions that were taken down with the monopolar hook. Anterior uterine to anterior abdominal wall filmy adhesions were seen and taken down bluntly and with hydrodissection. Additional filmy adhesions were also noted in the posterior uterine segment and were taken down using the LigaSure device. The left ectopic was injected with dilute vasopressin and a longitudinal incision made and the dissected out from inside the tube which completely released. The remaining fallopian tube was noted to be significantly clubbed and friable. Cautery was attempted to manage bleeding and then FloSeal placed over the area and inside the fallopian tube and pressure applied. Abdomen was copiously irrigated and suctioned and the area was again inspected and noted to have persistent bleeding. The LigaSure device was used to attempt cautery and was unsuccessful therefore the distal portion of the fallopian tube was removed using the LigaSure device and hemostasis obtained. Left ovary was noted to be within normal limits and right tube and ovary were surgically absent. and products were removed through a bag placed through the left lower quadrant port and then the port site was removed and the fascia closed using a Abdelrahman Laguna and 0 Vicryl without complication. Roz was placed over all of the operative area due to the overall appearance and significant scar tissue that was taken down throughout the pelvis. All instruments removed from the abdomen after gas was desufflated. Port sites were closed with 3-0 Monocryl Steri's and op sites were applied. All instruments removed from the vagina and patient was awoken and taken recovery in stable condition. Grafts/Implants Used: none - Complications none - Admit VTE Documentation VTE Present on Admission: No VTE Mechan Device Prophylaxis: SCD's Multi Select Codes - Urinary/Genital Urinary/Genital CPT Codes: 04071 Treat ectopic lapro w/ salpingectomy - Lysis of adhesions
--- NOTE | 2020-07-07 18:17 | PCM.DC.TUB ---
Discharge Diet: No Restrictions - Increase fluid intake for the next 48 hours. Discharge Activity: Return to Normal Activity, May Drive - when you are no longer taking narcotic pain medications., May Shower, May Take a Tub Bath - in 7 days Additional Activity Instructions:: Ambulate often the next week after surgery. Nothing in the vagina for 5 days. Call your doctor if your incision/area has: Continuous Slow Oozing, Sudden Increased Bleeding, Increased Pain/ Swelling, Increased Redness, Foul Smelling Discharge Call your doctor if you observe: Fever of 101 or Higher Allergies/Adverse Reactions: Allergies Sulfa (Sulfonamide Antibiotics) Allergy (Verified 07/07/20 11:09) Hives Medications to take at Discharge Naproxen [Naprosyn] 250 - 500 mg PO Q8H PRN PRN #30 tab 07/07/20 Oxycodone HCl/Acetaminophen [Percocet 5-325] 1 - 2 tablet PO Q6H PRN PRN 7 Days #15 tablet 07/07/20 The following prescriptions were given: Naproxen [Naprosyn] 250 - 500 mg PO Q8H PRN PRN #30 tab PRN Reason: MILD PAIN Transmission Status: Pending to [facility] Oxycodone HCl/Acetaminophen [Percocet 5-325] 1 - 2 tablet PO Q6H PRN PRN 7 Days #15 tablet PRN Reason: Pain Transmission Status: Sent to [facility] Primary Care Physician: Care Physician,No Primary [Primary Care Provider] - Test Results: Test results from this visit will be discussed in further detail at your follow-up appointment, if applicable. Please Follow Up With: Magaly Lloyd MD - [phone]
[2020-07-07] MEDS: Vasopressin 20 UNITS/ML Vial (18:54)
[2020-07-07] MEDS: Lactated Ringers 1,000 ML 100 ML IV ×2 (19:00→20:28)
[2020-07-07] MEDS: Bupivacaine 0.25% 30 ML Vial (19:42)
== END 2020-07-07 21:27 | disposition home or self-care (01) ==
LOC: ED 17:14 → SDC 19:55 → AC 19:59
PROVIDERS: Emergency Provider Student in an Organized Health Care Education/Training Program; Visit Provider Obstetrics & Gynecology
PROC: 10T24ZZ Resection of Products of Conception, Ectopic, Percutaneous Endoscopic Approach (ICD-10-PCS; CPT 59150; principal; 2020-07-07 18:00)
DX: O00.102 Left tubal pregnancy without intrauterine pregnancy (principal); Z90.721 Acquired absence of ovaries, unilateral
CPT/HCPCS: 00840; 59151; 76817; 80048; 84702; 85025; 86850; 86900; 86901; 87426; 88305; 99283; J7030; J7120; A4216; J2405